=== PATIENT | male | born 1985 | race American Indian/Alaskan Native ===

== ENCOUNTER 2020-07-27 17:33 | Inpatient (IN) | payer OTHER ==
--- NOTE | 2020-07-27 17:59 | Cat Scan Report ---
CT head/brain wo con INDICATION / CLINICAL INFORMATION: 34 years Male; MAIN. TECHNIQUE: Routine CT head without contrast. All CT scans at this location are performed using CT dos e reduction for ALARA by means of automated exposure control. COMPARISON: None. FINDINGS: BRAIN / INTRACRANIAL CONTENTS: No acute hemorrhage, mass effect, midline shift, hydrocephalus, or acu te, large territorial infarct. No signs of significant atrophy or chronic infarct. No significant whi te matter abnormality seen. CRANIOCERVICAL JUNCTION: No significant abnormality. ORBITS: No significant abnormality of visualized orbits. SINUSES / MASTOIDS: There is near complete opacification of the maxillary antrum on the right. Mild t o moderate opacification of the inferior mastoids on the right noted. ADDITIONAL FINDINGS: Prominent soft tissue is seen in the roof the nasopharynx, presumably related to reactive adenoidal tissue. Please clinically correlate. No coalescence of air cells noted. IMPRESSION: 1. No focal mass, hemorrhage, hydrocephalus, or acute, large territorial infarct. 2. Sinus disease, as described above. Signer Name: Leonardo Merlos MD, III Signed: 07/27/2020 5:59 PM Workstation Name: [id number]
--- NOTE | 2020-07-27 18:05 | Consultation ---
History of Present Illness Consult date: 07/27/20 Reason for Consult: encephalopathy, YOUNG History of present illness: [facility] Date of Service: 07/27/2020 17:44:20 Impression: Acute encephalopathy - suspect toxic/metabolic infectious. Rule out encephalitis Rule out sepsis Ischemic stroke less likely, rule out Comments/Sign-Out: 34 yo M with subacute encephalopathy and symptoms concerning for viral meningi tis; focal deficit reported dec sensation to left lower leg does not correlate with ischemic stroke distribution. Exposure includes trip to [facility] and potential COVID. Not alteplase candidate Metrics: Last Known Well: Unknown [employer] Notification Time: 07/27/2020 17:43:56 Arrival Time: 07/27/2020 17:33:00 Stamp Time: 07/27/2020 17:44:20 Time First Login Attempt: 07/27/2020 17:47:43 Video Start Time: 07/27/2020 17:49:38 Symptoms: acute encephalopathy, headache, slurred speech, neck stiffness x 2 days NIHSS Start Assessment Time: 07/27/2020 17:51:57 Patient is not a candidate for Alteplase/Activase. Patient was not deemed candidate for Alteplase/Activase thrombolytics because of Last Well Known Above 4.5 Hours. Video End Time: 07/27/2020 18:04:07 CT head showed no acute hemorrhage or acute core infarct. Clinical Presentation is not Suggestive of Large Vessel Occlusive Disease ED Physician notified of diagnostic impression and management plan on 07/27/2020 18:13:25 Our recommendations are outlined below. Recommendations: Activate Stroke Protocol Admission/Order Set Stroke/Telemetry Floor Neuro Checks Bedside Swallow Eval DVT Prophylaxis IV Fluids, Normal Saline Head of Bed 30 Degrees Euglycemia and Avoid Hyperthermia (PRN Acetaminophen) Recommend empiric antibacterial and antiviral coverage for encepha litis/meningitis; testing to rule out COVID, malaria, and other endemic disease Lumbar puncture to rule out [facility] infection/inflammation MRI brain with and without contrast (if renal function allows) on admission. Medical workup for SIRS/Sepsis Routine Consultation with Inhouse Neurology for Follow up Care Sign Out: Discussed with Emergency Department Provider History of Present Illness: Patient is a 34 year old Male. Patient was brought by private transportation with symptoms of acute encephalopathy, headache, slurred speech, neck stiffness x 2 days 34 yo M who just got back from [place] 2 weeks ago, and friend is concerned about malaria due to confusion, slurred speech headaches and neck stiffness. Patient went for personal visit x 1 month. He took antimalarials but stopped due to side effects. He said he did not get bit by any mosquitoes or have any infection while there but he is not very clear. He had no exposure to COVID and quarantined when he got home. CT head negative. Exam nonfocal, appears drowsy, speech slow but no significant dysarthria. Says left lower leg (sparing thigh) feels less than right. No history of stroke. Currently no neck stiffness, no vision change, but has a headache. Last seen normal was beyond 4.5 hours of presentation. Antiplatelet use: No Examination: BP(105/68), Pulse(134), Blood Glucose(119) 1A: Level of Consciousness - Alert; keenly responsive + 0 1B: Ask Month and Age - Both Questions Right + 0 1C: Blink Eyes & Squeeze Hands - Performs Both Tasks + 0 2: Test Horizontal Extraocular Movements - Normal + 0 3: Test Visual Jaramillo - No Visual Loss + 0 4: Test Facial Palsy (Use Grimace if Obtunded) - Normal symmetry + 0 5A: Test Left Arm Motor Drift - No Drift for 10 Seconds + 0 5B: Test Right Arm Motor Drift - No Drift for 10 Seconds + 0 6A: Test Left Leg Motor Drift - No Drift for 5 Seconds + 0 6B: Test Right Leg Motor Drift - No Drift for 5 Seconds + 0 7: Test Limb Ataxia (FNF/Heel-Mccauley) - No Ataxia + 0 8: Test Sensation - Mild-Moderate Loss: Less Sharp/More Dull + 1 9: Test Language/Aphasia - Normal; No aphasia + 0 10: Test Dysarthria - Mild-Moderate Dysarthria: Slurring but can be understood + 1 11: Test Extinction/Inattention - No abnormality + 0 NIHSS Score: 2 Pre-Morbid Modified Ranking Scale: 0 Points = No symptoms at all Patient/Family was informed the Neurology Consult would happen via TeleHealth consult by way of interactive audio and video telecommunications and consented to receiving care in this manner. Due to the immediate potential for life-threatening deterioration due to underlying acute neurologic illness, I spent 35 minutes providing critical care. This time includes time for face to face visit via telemedicine, review of medical records, imaging studies and discussion of findings with providers, the patient and/or family. Dr Javy Bolaños [facility] Case [id number] Medications and Allergies Allergies Allergy/AdvReac Type Severity Reaction Status Date / Time Unable to Assess Allergy Unverified 07/27/20 17:38 Physical Examination - Vital Signs Vital Signs: Vital Signs Temp Pulse Resp BP Pulse Ox 98.6 F 138 H 18 97/56 99 07/27/20 17:43 07/27/20 17:43 07/27/20 17:43 07/27/20 17:43 07/27/20 17:43 Results - Laboratory Findings Abnormal Lab Findings: Abnormal Labs 07/27/20 18:00 POC Glucose 119 H
[2020-07-27 18:15] LABS: Basophils % (Auto) 0.5 % (0.0-1.8); Hematocrit 45.2 % (35.5-45.6); Hemoglobin 15.7 gm/dl (11.8-15.2); Lymphocytes # (Auto) 0.9 K/mm3 (1.2-5.4); Lymphocytes % (Auto) 9.6 % (13.4-35.0); Mean Corpuscular HGB Conc 35 % (32-34); Mean Corpuscular Volume 89 fl (84-94); Monocytes # (Auto) 0.9 K/mm3 (0.0-0.8); Monocytes % (Auto) 10.1 % (0.0-7.3); Red Blood Count 5.09 M/mm3 (3.65-5.03); Red Cell Distribution Width 13.2 % (13.2-15.2)
[2020-07-27 18:33] LABS: Creatine Kinase MB 2.4 ng/mL (0.0-4.0)
[2020-07-27 18:34] LABS: Albumin 3.3 g/dL (3.9-5); INR 1.15 (0.87-1.13)
[2020-07-27 18:35] LABS: Partial Thromboplastin Time 32.1 Sec. (24.2-36.6); Thrombin Time 16.8 Sec. (15.1-19.6)
[2020-07-27] MEDS ORDERED: SODIUM CHLORIDE 0.9% 1000 ML 1,000 ML IV ONE (18:38)
[2020-07-27] MEDS ORDERED: cefTRIAXone/NS 2 GM/100 ML 2 GM/100 ML BAG IV ONE (18:39)
--- NOTE | 2020-07-27 18:47 | Emergency Department Report ---
HPI - General Chief Complaint: Neuro Symptoms/Deficit Time Seen by Provider: 07/27/20 17:41 - HPI HPI: Room 19 The patient is a 34-year-old male present with a chief complaint of altered mental status. Patient was brought in for altered mental status. Patient states his friend told him he was not acting like his normal self since yesterday. Patient complains of pain to the back of his head and neck since yesterday. Patient states he had episode of vomiting yesterday as well. Patient currently denies headache or fever. Of note within the past 2 weeks the patient travel to [facility]. Patient states he was taking malaria prophylaxis but did not like the side effect so he stopped taking the medication. Patient was asked repeatedly how long he took a prophylaxis for local he never gives an answer. Patient was asked to see has had a cough patient replies "not really until today when drinking water." ED Past Medical Hx - Past Medical History Previous Medical History?: No - Surgical History Past Surgical History?: No - Family History Family history: no significant - Social History Smoking Status: Never Smoker Substance Use Type: None (Denies illicit drug use), Alcohol (Occasional) - Medications Home Medications: Home Medications Medication Instructions Recorded Confirmed Last Taken Type No Known Home Medications [No 07/27/20 07/27/20 Unknown History Reported Home Medications] ED Review of Systems ROS: Stated complaint: NOT RESPONDING Other details as noted in HPI Constitutional: denies: fever Eyes: denies: eye pain ENT: denies: throat pain Respiratory: cough Cardiovascular: denies: chest pain Endocrine: no symptoms reported Gastrointestinal: nausea, vomiting Musculoskeletal: back pain Neurological: confusion Physical Exam - Physical Exam Vital Signs: Vital Signs 07/27/20 07/27/20 17:43 18:06 Temperature 98.6 F Pulse Rate 138 H Respiratory 18 30 H Rate Blood Pressure 97/56 O2 Sat by Pulse 99 97 Oximetry Physical Exam: GENERAL: The patient is well-developed well-nourished male lying on stretcher not appearing to be in acute distress. [] HEENT: Normocephalic. Atraumatic. Extraocular motions are intact. Patient has moist mucous membranes. NECK: Trachea midline. Patient lies on stretcher in a manner in which the back of the stretcher causes him to flex his neck CHEST/LUNGS: Clear to auscultation. There is no respiratory distress noted. HEART/CARDIOVASCULAR: Regular. There is no tachycardia. There is no gallop rub or murmur. ABDOMEN: Abdomen is soft, nontender. Patient has normal bowel sounds. There is no abdominal distention. SKIN: There is no rash. There is no edema. There is no diaphoresis. NEURO: The patient is awake and alert. The patient is cooperative. The patient has no focal neurologic deficits. The patient has normal speech MUSCULOSKELETAL: There is no evidence of acute injury. ED Course Vital Signs 07/27/20 07/27/20 17:43 18:06 Temperature 98.6 F Pulse Rate 138 H Respiratory 18 30 H Rate Blood Pressure 97/56 O2 Sat by Pulse 99 97 Oximetry - Lumbar Puncture Consent Obtained: verbal consent Time Out Performed: Yes Indication for Procedure: change in mental status Patient Position: left lateral decubitus Skin Prep: Povidone-Iodine 1% Local Anesthetic Used: Lidocaine 1% Amount of anesthesia used (mls): 5 Spinal Needle Gauge: 20G Spinal Needle Length: 3.5in Interspace Used: L4-L5 Fluid Initially Obtained: clear Complications: none Patient Tolerated Procedure: well, no complications ED Medical Decision Making - Lab Data Result diagrams: 07/27/20 18:04 07/27/20 18:04 Laboratory Tests 07/27/20 07/27/20 07/27/20 18:00 18:04 18:04 WBC 9.3 RBC 5.09 H Hgb 15.7 H Hct 45.2 MCV 89 MCH 31 MCHC 35 H RDW 13.2 Plt Count 30 L Lymph % (Auto) 9.6 L Carroll % (Auto) 10.1 H Eos % (Auto) 0.0 Baso % (Auto) 0.5 Lymph # (Auto) 0.9 L Carroll # (Auto) 0.9 H Eos # (Auto) 0.0 Baso # (Auto) 0.0 Seg Neutrophils % 79.8 H Seg Neutrophils # 7.4 PT 14.8 INR 1.15 H APTT 32.1 Thrombin Time 16.8 Sodium Potassium Chloride Carbon Dioxide Anion Gap BUN Creatinine Estimated GFR BUN/Creatinine Ratio Glucose POC Glucose 119 H Lactic Acid Calcium Total Bilirubin AST ALT Alkaline Phosphatase Ammonia Total Creatine Kinase CK-MB (CK-2) CK-MB (CK-2) Rel Index Troponin T Total Protein Albumin Albumin/Globulin Ratio CSF Appearance CSF Color CSF WBC CSF RBC CSF Glucose CSF Total Protein 07/27/20 07/27/20 07/27/20 18:04 18:04 18:04 WBC RBC Hgb Hct MCV MCH MCHC RDW Plt Count Lymph % (Auto) Carroll % (Auto) Eos % (Auto) Baso % (Auto) Lymph # (Auto) Carroll # (Auto) Eos # (Auto) Baso # (Auto) Seg Neutrophils % Seg Neutrophils # PT INR APTT Thrombin Time Sodium 126 L Potassium 3.2 L Chloride 91.7 L Carbon Dioxide 21 L Anion Gap 17 BUN 29 H Creatinine 2.0 H Estimated GFR 39 BUN/Creatinine Ratio 15 Glucose 132 H POC Glucose Lactic Acid Calcium 8.0 L Total Bilirubin 5.40 H AST 105 H ALT 85 H Alkaline Phosphatase 57 Ammonia 41.0 Total Creatine Kinase 884 H CK-MB (CK-2) 2.4 CK-MB (CK-2) Rel Index 0.2 Troponin T < 0.010 Total Protein 7.1 Albumin 3.3 L Albumin/Globulin Ratio 0.9 CSF Appearance CSF Color CSF WBC CSF RBC CSF Glucose CSF Total Protein 07/27/20 07/27/20 07/27/20 18:54 20:00 20:00 WBC RBC Hgb Hct MCV MCH MCHC RDW Plt Count Lymph % (Auto) Carroll % (Auto) Eos % (Auto) Baso % (Auto) Lymph # (Auto) Carroll # (Auto) Eos # (Auto) Baso # (Auto) Seg Neutrophils % Seg Neutrophils # PT INR APTT Thrombin Time Sodium Potassium Chloride Carbon Dioxide Anion Gap BUN Creatinine Estimated GFR BUN/Creatinine Ratio Glucose POC Glucose Lactic Acid 1.90 Calcium Total Bilirubin AST ALT Alkaline Phosphatase Ammonia Total Creatine Kinase CK-MB (CK-2) CK-MB (CK-2) Rel Index Troponin T Total Protein Albumin Albumin/Globulin Ratio CSF Appearance Clear Clear CSF Color Colorless Colorless CSF WBC 12 4 CSF RBC 2 0 CSF Glucose 78 CSF Total Protein 42 - EKG Data -: EKG Interpreted by Me EKG shows normal: sinus rhythm Rate: tachycardia (134 bpm) - EKG Data When compared to previous EKG there are: previous EKG unavailable Interpretation: other (No ischemic changes seen) - Radiology Data Radiology results: report reviewed (CT head, chest x-ray), image reviewed (CT head, chest x-ray) interpreted by me: Chest x-ray-no focal infiltrates, no pneumothorax, no foreign body seen [address] [address] Cat Scan Report Signed Patient: CURT TURCIOS MR#: [id number] : 1985 Acct:[id number] Age/Sex: 34 / M ADM Date: 07/27/20 Loc: ED Attending Dr: Ordering Physician: EDGAR RODRIGUEZ Date of Service: 07/27/20 Procedure(s): CT head/brain wo con Accession Number(s): [id number] cc: EDGAR RODRIGUEZ CT head/brain wo con INDICATION / CLINICAL INFORMATION: 34 years Male; MAIN. TECHNIQUE: Routine CT head without contrast. All CT scans at this location are performed using CT dose reduction for ALARA by means of automated exposure control. COMPARISON: None. FINDINGS: BRAIN / INTRACRANIAL CONTENTS: No acute hemorrhage, mass effect, midline shift, hydrocephalus, or acute, large territorial infarct. No signs of significant atrophy or chronic infarct. No significant white matter abnormality seen. CRANIOCERVICAL JUNCTION: No significant abnormality. ORBITS: No significant abnormality of visualized orbits. SINUSES / MASTOIDS: There is near complete opacification of the maxillary antrum on the right. Mild to moderate opacification of the inferior mastoids on the right noted. ADDITIONAL FINDINGS: Prominent soft tissue is seen in the roof the nasopharynx, presumably related to reactive adenoidal tissue. Please clinically correlate. No coalescence of air cells noted. IMPRESSION: 1. No focal mass, hemorrhage, hydrocephalus, or acute, large territorial infarct. 2. Sinus disease, as described above. Signer Name: Leonardo Merlos MD, III Signed: 07/27/2020 5:59 PM Workstation Name: [id number] Transcribed By: HR Dictated By: Leonardo Merlos MD Electronically Authenticated By: Leonardo Merlos MD Signed Date/Time: 07/27/201758 DD/ 55 TD/TT: [address] [address] XRay Report Signed Patient: CURT TURCIOS MR#: [id number] : 1985 Acct:[id number] Age/Sex: 34 / M ADM Date: 07/27/20 Loc: ED Attending Dr: Ordering Physician: EMMA NEVAREZ MD Date of Service: 07/27/20 Procedure(s): XR chest 1V ap Accession Number(s): [id number] cc: EMMA NEVAREZ MD Fluoro Time In Minutes: CHEST 1 VIEW 07/27/2020 7:00 PM INDICATION / CLINICAL INFORMATION: Cough, tachycardia. COMPARISON: None available. FINDINGS: SUPPORT DEVICES: None. HEART / MEDIASTINUM: No significant abnormality. LUNGS / PLEURA: No significant pulmonary or pleural abnormality. No pneumothorax. ADDITIONAL FINDINGS: No significant additional findings. IMPRESSION: No acute abnormality. Signer Name: Prabhjot Reich MD Signed: 07/27/2020 7:27 PM Workstation Name: [id number] Transcribed By: ES Dictated By: Prabhjot Reich MD Electronically Authent icated By: Prabhjot Reich MD Signed Date/Time: 07/27/201926 DD/ 26 TD/TT: - Differential Diagnosis Altered mental status, meningitis, encephalitis, Critical care attestation.: If time is entered above; I have spent that time in minutes in the direct care of this critically ill patient, excluding procedure time. ED Disposition Clinical Impression: Altered mental status Disposition: DC-09 OP ADMIT IP TO THIS HOSP Is pt being admited?: Yes Does the pt Need Aspirin: Yes Condition: Fair Referrals: PRIMARY CARE, [Primary Care Provider] - 3-5 Days Time of Disposition: 21:41 (Hospitalist notified (Dr Dove))
[2020-07-27] MEDS: SODIUM CHLORIDE 0.9% 1000 ML 1,000 ML IV ONE ×2 (18:51→19:10)
[2020-07-27 19:04] LABS: Platelet Count 30 K/mm3 (140-440)
--- NOTE | 2020-07-27 19:28 | XRay Report ---
CHEST 1 VIEW 07/27/2020 7:00 PM INDICATION / CLINICAL INFORMATION: Cough, tachycardia. COMPARISON: None available. FINDINGS: SUPPORT DEVICES: None. HEART / MEDIASTINUM: No significant abnormality. LUNGS / PLEURA: No significant pulmonary or pleural abnormality. No pneumothorax. ADDITIONAL FINDINGS: No significant additional findings. IMPRESSION: No acute abnormality. Signer Name: Prabhjot Reich MD Signed: 07/27/2020 7:27 PM Workstation Name: [id number]
[2020-07-27 20:23] LABS: Glucose,CSF 78 mg/dL
[2020-07-27 21:30] LABS: Appearance,CSF Clear
[2020-07-27 21:31] LABS: Red Blood Cell,CSF 0 /mm3 (0-0); White Blood Cell,CSF 4 /mm3 (1-10)
[2020-07-27 21:32] LABS: Appearance,CSF Clear; Red Blood Cell,CSF 2 /mm3 (0-0); White Blood Cell,CSF 12 /mm3 (1-10)
[2020-07-27 21:43] LABS: Basophils CSF 0 %; Total Cells Counted 47 /mm3
[2020-07-27 22:05] LABS: Basophils CSF 0 %; Total Cells Counted 12 /mm3
--- NOTE | 2020-07-27 23:02 | Cat Scan Report ---
CT ABDOMEN AND PELVIS WITHOUT CONTRAST HISTORY: Right-sided abdominal pain. COMPARISON: None TECHNIQUE: Routine abdominal and pelvic CT exam performed without contrast. Lack of intravenous cont rast limits evaluation of the vascular and solid organs.. All CT scans at this location are performed using CT dose reduction for ALARA by means of automated exposure control. FINDINGS: CT ABDOMEN: Lung Bases: No significant abnormality. Liver: No significant abnormality. Biliary: No significant abnormality. Spleen: No significant abnormality. Unenlarged. Pancreas: No significant abnormality. Adrenals: No significant abnormality. Kidneys: No stones, pelvocaliectasis, ureterectasis. No perinephric or periureteral stranding. Lymphatics: No lymphadenopathy. Vasculature: No significant abnormality. Bowel/Peritoneum: No significant abnormality. No free air. No free fluid. Normal appendix. CT PELVIC: : No significant abnormality. Lymphatics: No lymphadenopathy. Osseous Structures: No aggressive appearing osseous lesions. Additional Findings: None IMPRESSION: 1. No acute findings. No findings to explain right-sided abdominal pain. Signer Name: Julito Camp MD Signed: 07/27/2020 11:02 PM Workstation Name: [id number]
--- NOTE | 2020-07-27 23:13 | History and Physical Report ---
History of Present Illness Date of examination: 07/27/20 Date of admission: 07/27/20 21:40 Chief complaint: Altered mental status History of present illness: 34-year-old male brought into the emergency room with complaints of altered mental status today. Most of the history was gotten from the ER staff as patient appears confused and unable to provide any history. He was said to have complained of headache and some neck pain since yesterday and also that his roommate had told him that he was behaving abnormally. He has had an episode of nausea and vomiting but no headache, fever or chills. He has also had a recent travel to [facility] and was said to have commenced on some malaria prophylaxis but did not complete the dose because of the side effects. Upon arrival in the emergency room today he was found to be tachycardic. He was evaluated by the teleneurologist and was deemed to be probably having metabolic encephalopathy. CT scan of the head has been negative. A lumbar puncture was also performed in the ER and patient commenced empirically on antibiotics for possible meningitis. Peripheral smear for parasites on the blood has also been done and results currently pending. He was found to have elevated BUN and creatinine, elevated creatinine kinase. Patient is being admitted with rhabdo, KHOA and encephalopathy with unclear etiology. Past History Past Medical History: No medical history Past Surgical History: No surgical history Social history: no significant social history Family history: no significant family history Medications and Allergies Allergies Allergy/AdvReac Type Severity Reaction Status Date / Time No Known Allergies Allergy Verified 07/27/20 19:13 Home Medications Medication Instructions Recorded Confirmed Last Taken Type No Known Home Medications [No 07/27/20 07/27/20 Unknown History Reported Home Medications] Active Meds: Active Medications Acetaminophen (Tylenol) 650 mg PO Q4H PRN PRN Reason: Pain MILD(1-3)/Fever >100.5/YOUNG Sodium Chloride (Nacl 0.9% 1000 Ml) 1,000 mls @ 125 mls/hr IV DIRECT RENE Morphine Sulfate (Morphine) 2 mg IV Q4H PRN PRN Reason: Pain, Moderate (4-6) Ondansetron HCl (Zofran) 4 mg IV Q8H PRN PRN Reason: Nausea And Vomiting Sodium Chloride (Sodium Chloride Flush Syringe 10 Ml) 10 ml IV BID RENE Sodium Chloride (Sodium Chloride Flush Syringe 10 Ml) 10 ml IV PRN PRN PRN Reason: LINE FLUSH Sodium Chloride (Sodium Chloride Flush Syringe 10 Ml) 10 ml IV BID RENE Sodium Chloride (Sodium Chloride Flush Syringe 10 Ml) 10 ml IV PRN PRN PRN Reason: LINE FLUSH Review of Systems ROS unobtainable: due to mental status Exam - Constitutional Vitals: Temp Pulse Resp BP Pulse Ox 98.3 F 109 H 16 106/68 95 07/27/20 23:00 07/27/20 23:00 07/27/20 23:00 07/27/20 23:00 07/27/20 23:00 General appearance: Present: no acute distress, well-nourished - EENT Eyes: Present: PERRL, EOM intact. Absent: scleral icterus ENT: hearing intact, clear oral mucosa, dentition normal - Neck Neck: Present: supple, normal ROM - Respiratory Respiratory effort: normal Respiratory: bilateral: CTA - Cardiovascular Rhythm: regular Heart Sounds: Present: S1 & S2. Absent: gallop, systolic murmur, diastolic murmur, rub - Extremities Extremities: no ischemia, pulses intact, pulses symmetrical, No edema, normal temperature, normal color, Full ROM Peripheral Pulses: within normal limits - Abdominal General gastrointestinal: Present: soft, non-tender, non-distended, normal bowel sounds. Absent: mass - Integumentary Integumentary: Present: clear, warm, dry. Absent: rash - Musculoskeletal Musculoskeletal: strength equal bilaterally - Psychiatric Psychiatric: cooperative - Neurologic Neurologic: CNII-XII intact, no focal deficits, moves all extremities, other (Confused.) HEART Score - HEART Score Troponin: Troponin T < 0.010 ng/mL (0.00-0.029) 07/27/20 18:04 Results - Labs CBC & Chem 7: 07/27/20 18:04 07/27/20 18:04 Labs: Abnormal lab results 07/27/20 07/27/20 07/27/20 Range/Units 18:00 18:04 18:04 RBC 5.09 H (3.65-5.03) M/mm3 Hgb 15.7 H (11.8-15.2) gm/dl MCHC 35 H (32-34) % Plt Count 30 L (140-440) K/mm3 Lymph % (Auto) 9.6 L (13.4-35.0) % [place] % (Auto) 10.1 H (0.0-7.3) % Lymph # (Auto) 0.9 L (1.2-5.4) K/mm3 [place] # (Auto) 0.9 H (0.0-0.8) K/mm3 Seg Neutrophils % 79.8 H (40.0-70.0) % INR 1.15 H (0.87-1.13) Sodium (137-145) mmol/L Potassium (3.6-5.0) mmol/L Chloride (98-107) mmol/L Carbon Dioxide (22-30) mmol/L BUN (9-20) mg/dL Creatinine (0.8-1.3) mg/dL Glucose (75-100) mg/dL POC Glucose 119 H (70-105) mg/dL Calcium (8.4-10.2) mg/dL Total Bilirubin (0.1-1.2) mg/dL AST (5-40) units/L ALT (7-56) units/L Total Creatine Kinase (55-170) units/L Albumin (3.9-5) g/dL 07/27/20 07/27/20 Range/Units 18:04 18:04 RBC (3.65-5.03) M/mm3 Hgb (11.8-15.2) gm/dl MCHC (32-34) % Plt Count (140-440) K/mm3 Lymph % (Auto) (13.4-35.0) % [place] % (Auto) (0.0-7.3) % Lymph # (Auto) (1.2-5.4) K/mm3 [place] # (Auto) (0.0-0.8) K/mm3 Seg Neutrophils % (40.0-70.0) % INR (0.87-1.13) Sodium 126 L (137-145) mmol/L Potassium 3.2 L (3.6-5.0) mmol/L Chloride 91.7 L (98-107) mmol/L Carbon Dioxide 21 L (22-30) mmol/L BUN 29 H (9-20) mg/dL Creatinine 2.0 H (0.8-1.3) mg/dL Glucose 132 H (75-100) mg/dL POC Glucose (70-105) mg/dL Calcium 8.0 L (8.4-10.2) mg/dL Total Bilirubin 5.40 H (0.1-1.2) mg/dL AST 105 H (5-40) units/L ALT 85 H (7-56) units/L Total Creatine Kinase 884 H (55-170) units/L Albumin 3.3 L (3.9-5) g/dL Assessment and Plan - Patient Problems (1) Altered mental status Current Visit: Yes Status: Acute Plan to address problem: Etiology is unclear. Patient has had a recent international travel. Peripheral blood smear for parasites has been done. Patient is also being ruled out for possible meningitis. He has been placed on empiric IV antibiotics. We will continue to monitor mental status. We will place a consult to infectious disease for evaluation and recommendation. (2) DVT prophylaxis Current Visit: Yes Status: Acute Plan to address problem: Patient placed on subcutaneous heparin. (3) Elevated creatine kinase Current Visit: Yes Status: Acute Plan to address problem: We will continue to monitor creatinine kinase level and continue generous IV fluid hydration. (4) Acute kidney injury Current Visit: Yes Status: Acute Plan to address problem: We will monitor BUN and creatinine.will continue IV fluid normal saline. (5) Full code status Current Visit: Yes Status: Acute
[2020-07-27 23:21] LABS: Amphetamine Screen,Urine PRESUMPTIVE NEGATIVE; Benzodiazepines Screen,Urine PRESUMPTIVE NEGATIVE; Cannabinoid Screen,Urine PRESUMPTIVE NEGATIVE; Cocaine Screen,Urine PRESUMPTIVE NEGATIVE; Methadone Screen,Urine PRESUMPTIVE NEGATIVE; Opiate Screen,Urine PRESUMPTIVE NEGATIVE
[2020-07-27 23:33] LABS: Bacteria,Urine 1+ /HPF (Negative); Bilirubin,Urine NEG (Negative); Blood,Urine LG (Negative); Color,Urine Amber (Yellow)
[2020-07-27] MEDS ORDERED: VANCOMYCIN PHARMACY TO DOSE IV SCH (23:45)
[2020-07-28] MEDS ORDERED: VANCOMYCIN 2,000 MG in SODIUM CHLORIDE 0.9% 500 ML 500 ML IV ONE (01:00)
[2020-07-28] MEDS: SODIUM CHLORIDE 0.9% 1000 ML 1,000 ML IV SCH ×3 (05:42→20:22)
[2020-07-28] MEDS: HEPARIN 5,000 UNIT/1 ML VIAL SUB-Q SCH ×2 (05:44→14:37)
[2020-07-28 06:28] LABS: Hematocrit 43.9 % (35.5-45.6); Mean Corpuscular HGB Conc 34 % (32-34); Mean Corpuscular Volume 91 fl (84-94); Red Blood Count 4.83 M/mm3 (3.65-5.03)
[2020-07-28 06:32] LABS: Basophils % (Auto) 0.5 % (0.0-1.8); Eosinophils % (Auto) 0.1 % (0.0-4.3); Lymphocytes % (Auto) 12.5 % (13.4-35.0); Monocytes # (Auto) 1.1 K/mm3 (0.0-0.8); Monocytes % (Auto) 13.8 % (0.0-7.3); Platelet Count 29 K/mm3 (140-440)
[2020-07-28 06:33] LABS: INR 1.06 (0.87-1.13)
[2020-07-28 06:42] LABS: Calcium 7.5 mg/dL (8.4-10.2)
--- NOTE | 2020-07-28 08:42 | Consultation ---
History of Present Illness - Reason for Consult Consult date: 07/28/20 acute renal failure - History of Present Illness The patient is a 34 YO male without any medical history who was brought into [facility] ED 07/27 with complaints of altered mental status. Patient reports having occipital headache for the past 3-4 days, which is constant, sharp, not radiating and 8/10. He also reports having decreased appetite and poor PO intake for about 4 days. His roommate found him behaving abnormally. He had an episode of nausea and vomiting. He deneis fever, chills, rash, abd pain, diarrhea, cp, sob, dysuria, hematuria, dizziness or syncope. He has recently traveled to [facility] and was said to have commenced on some malaria prophylaxis but did not complete the dose because of the side effects. Upon arrival in the ED he was found to be tachycardic and hypotensive. He was evaluated by the tel eneurologist and was deemed to be probably having metabolic encephalopathy. CT scan of the head was negative. A lumbar puncture was also performed in the ER and patient commenced empirically on antibiotics for possible meningitis. Labs signficant for elevated BUN and creatinine, hyponatremia and elevated creatinine kinase. Nephrology was consulted for further evaluation. Past History Past Medical History: No medical history Past Surgical History: No surgical history Social history: no significant social history Family history: no significant family history Medications and Allergies Allergies Allergy/AdvReac Type Severity Reaction Status Date / Time No Known Allergies Allergy Verified 07/27/20 19:13 Home Medications Medication Instructions Recorded Confirmed Last Taken Type No Known Home Medications [No 07/27/20 07/27/20 Unknown History Reported Home Medications] Active Meds: Active Medications Acetaminophen (Tylenol) 650 mg PO Q4H PRN PRN Reason: Pain MILD(1-3)/Fever >100.5/YOUNG Heparin Sodium (Porcine) (Heparin) 5,000 unit SUB-Q Q8HR RENE Last Admin: 07/28/20 05:44 Dose: 5,000 unit Documented by: Sodium Chloride (Nacl 0.9% 1000 Ml) 1,000 mls @ 150 mls/hr IV DIRECT RENE Last Admin: 07/28/20 05:42 Dose: 150 mls/hr Documented by: Ceftriaxone Sodium (Rocephin/Ns 2 Gm/100 Ml) 2 gm in 100 mls @ 200 mls/hr IV Q12HR RENE; Protocol Morphine Sulfate (Morphine) 2 mg IV Q4H PRN PRN Reason: Pain, Moderate (4-6) Ondansetron HCl (Zofran) 4 mg IV Q8H PRN PRN Reason: Nausea And Vomiting Sodium Chloride (Sodium Chloride Flush Syringe 10 Ml) 10 ml IV BID RENE Sodium Chloride (Sodium Chloride Flush Syringe 10 Ml) 10 ml IV PRN PRN PRN Reason: LINE FLUSH Last Admin: 07/28/20 05:41 Dose: 10 ml Documented by: Review of Systems Constitutional: anorexia, poor appetite, no weight loss, no weight gain, no fever, no chills, no fatigue Cardiovascular: no chest pain, no orthopnea, no edema, no syncope, no lightheadedness, no shortness of breath, no leg edema Respiratory: no cough, no shortness of breath Gastrointestinal: nausea, vomiting, no abdominal pain, no diarrhea, no melena Genitourinary Male: no dysuria, no hematuria Rectal: no bleeding Musculoskeletal: neck stiffness, neck pain Integumentary: no rash, no redness, no wounds, no jaundice Neurological: change in mentation, no paralysis, no seizures, no syncope, no aphasia Exam - Vital Signs Vital signs: Vital Signs Temp Pulse Resp BP Pulse Ox 98.6 F 138 H 18 97/56 99 07/27/20 17:43 07/27/20 17:43 07/27/20 17:43 07/27/20 17:43 07/27/20 17:43 Results - Lab Results 07/28/20 05:56 07/28/20 05:56 Most recent lab results Calcium 7.5 mg/dL (8.4-10.2) L 07/28/20 05:56 Assessment and Plan 1. Acute kidney injury: Likely vasomotor KHOA in the setting of volume depletion. CT abdomen was negative for hydro. Urine studies ordered. Continue IV fluids. Monitor renal function. Creatinine level is improving Avoid nephrotoxic agents. Meds dosage based on GFR. 2. FEN: Hyponatremia, 2/2 volume depletion, improving, monitor. Hypokalemia, improving, monitor. Monitor lytes and volume status. 3. Acute encephalopathy, POA: Suspected meningitis. Follow CSF cultures. Continue Abx. Followed by ID. 4. Febrile illness: Secondary to malaria, likely falciparum. Followed by ID. 5. Elevated Transaminases and T.bili. 6. Thrombocytopenia. Subjective: Patient was seen and examined at the bedside. Examination: General appearance: well-developed, appears stated age, well nourished HEENT: ATNC, pupils equal Neck: trachea midline Respiratory: ctab Heart: regular, S1S2, no murmur Gastrointestinal: soft, normoactive bowel sounds, not tender Integumentary: no rash, warm and dry Neurologic: alert, oriented, conversing, non-focal Ext: no edema
[2020-07-28] MEDS ORDERED: cefTRIAXone/NS 2 GM/100 ML 2 GM/100 ML BAG IV SCH (10:00)
--- NOTE | 2020-07-28 10:57 | Progress Note ---
Assessment and Plan Assessment and plan: --Acute metabolic encephalopathy: Patient had recent international travel. Status post lumbar puncture, Follow CSF analysis Follow peripheral smear for parasites Supportive care --Acute kidney injury; Due to vasomotor nephropathy Closely monitor renal function, avoid nephrotoxins Nephrology consult as needed --Hyponatremia; Continue replacement therapy with normal saline Mild improvement, nephrology following --Elevated CK; Gentle hydration closely monitor renal function --DVT prophylaxis; Subcu heparin, SCDs We will closely monitor the patient and adjust management as needed Follow ID evaluation and recommendations We will closely monitor the patient and adjust management as needed Plan of care reviewed with the patient and his nurse History Interval history: I have seen and examined the patient at the bedside today Patient was admitted with altered level of consciousness History of recent travel Patient is more alert and awake Work-up is in progress Complains of generalized weakness Vital signs noted Hospitalist Physical - Constitutional Vitals: Temp Pulse Resp BP Pulse Ox 98.1 F 101 H 16 112/69 97 07/28/20 03:18 07/28/20 03:18 07/28/20 03:18 07/28/20 03:18 07/28/20 03:18 General appearance: Present: no acute distress, well-nourished, other (Alert awake oriented x3) - EENT Eyes: Present: PERRL, EOM intact - Neck Neck: Present: supple, normal ROM - Respiratory Respiratory effort: normal Respiratory: bilateral: diminished, negative: rales, rhonchi, wheezing - Cardiovascular Rhythm: regular Heart Sounds: Present: S1 & S2 - Extremities Extremities: no ischemia, No edema - Abdominal General gastrointestinal: soft, non-tender, non-distended, normal bowel sounds - Integumentary Integumentary: Present: clear, warm - Psychiatric Psychiatric: appropriate mood/affect, cooperative - Neurologic Neurologic: CNII-XII intact, moves all extremities HEART Score - HEART Score Troponin: Troponin T < 0.010 ng/mL (0.00-0.029) 07/27/20 18:04 Results - Labs CBC & Chem 7: 07/28/20 05:56 07/28/20 05:56 Labs: Laboratory Last Values WBC 8.0 K/mm3 (4.5-11.0) 07/28/20 05:56 RBC 4.83 M/mm3 (3.65-5.03) 07/28/20 05:56 Hgb 15.0 gm/dl (11.8-15.2) 07/28/20 05:56 Hct 43.9 % (35.5-45.6) 07/28/20 05:56 MCV 91 fl (84-94) 07/28/20 05:56 MCH 31 pg (28-32) 07/28/20 05:56 MCHC 34 % (32-34) 07/28/20 05:56 RDW 14.0 % (13.2-15.2) 07/28/20 05:56 Plt Count 29 K/mm3 (140-440) L 07/28/20 05:56 Lymph % (Auto) 12.5 % (13.4-35.0) L 07/28/20 05:56 [place] % (Auto) 13.8 % (0.0-7.3) H 07/28/20 05:56 Eos % (Auto) 0.1 % (0.0-4.3) 07/28/20 05:56 Baso % (Auto) 0.5 % (0.0-1.8) 07/28/20 05:56 Lymph # (Auto) 1.0 K/mm3 (1.2-5.4) L 07/28/20 05:56 [place] # (Auto) 1.1 K/mm3 (0.0-0.8) H 07/28/20 05:56 Eos # (Auto) 0.0 K/mm3 (0.0-0.4) 07/28/20 05:56 Baso # (Auto) 0.0 K/mm3 (0.0-0.1) 07/28/20 05:56 Seg Neutrophils % 73.1 % (40.0-70.0) H 07/28/20 05:56 Seg Neutrophils # 5.8 K/mm3 (1.8-7.7) 07/28/20 05:56 PT 13.9 Sec. (12.2-14.9) 07/28/20 05:56 INR 1.06 (0.87-1.13) 07/28/20 05:56 APTT 32.1 Sec. (24.2-36.6) 07/27/20 18:04 Thrombin Time 16.8 Sec. (15.1-19.6) 07/27/20 18:04 Sodium 133 mmol/L (137-145) L D 07/28/20 05:56 Potassium 3.8 mmol/L (3.6-5.0) 07/28/20 05:56 Chloride 97.8 mmol/L (98-107) L 07/28/20 05:56 Carbon Dioxide 22 mmol/L (22-30) 07/28/20 05:56 Anion Gap 17 mmol/L 07/28/20 05:56 BUN 23 mg/dL (9-20) H 07/28/20 05:56 Creatinine 1.6 mg/dL (0.8-1.3) H 07/28/20 05:56 Estimated GFR 50 ml/min 07/28/20 05:56 BUN/Creatinine Ratio 14 % 07/28/20 05:56 Glucose 100 mg/dL (75-100) 07/28/20 05:56 POC Glucose 119 mg/dL (70-105) H 07/27/20 18:00 Lactic Acid 1.90 mmol/L (0.7-2.0) 07/27/20 18:54 Calcium 7.5 mg/dL (8.4-10.2) L 07/28/20 05:56 Total Bilirubin 5.40 mg/dL (0.1-1.2) H 07/27/20 18:04 AST 105 units/L (5-40) H 07/27/20 18:04 ALT 85 units/L (7-56) H 07/27/20 18:04 Alkaline Phosphatase 57 units/L (35-129) 07/27/20 18:04 Ammonia 41.0 umol/L (25-60) 07/27/20 18:04 Total Creatine Kinase 698 units/L (55-170) H 07/28/20 05:56 CK-MB (CK-2) 2.4 ng/mL (0.0-4.0) 07/27/20 18:04 CK-MB (CK-2) Rel Index 0.2 (0-4) 07/27/20 18:04 Troponin T < 0.010 ng/mL (0.00-0.029) 07/27/20 18:04 Total Protein 7.1 g/dL (6.3-8.2) 07/27/20 18:04 Albumin 3.3 g/dL (3.9-5) L 07/27/20 18:04 Albumin/Globulin Ratio 0.9 % 07/27/20 18:04 Urine Color [place]zel (Yellow) 07/27/20 Unknown Urine Turbidity Cloudy (Clear) 07/27/20 Unknown Urine pH 5.0 (5.0-7.0) 07/27/20 Unknown Ur Specific [place] 1.012 (1.003-1.030) 07/27/20 Unknown Urine Protein 100 mg/dl mg/dL (Negative) 07/27/20 Unknown Urine Glucose (UA) Neg mg/dL (Negative) 07/27/20 Unknown Urine Ketones Neg mg/dL (Negative) 07/27/20 Unknown Urine Blood Lg (Negative) 07/27/20 Unknown Urine Nitrite Neg (Negative) 07/27/20 Unknown Urine Bilirubin Neg (Negative) 07/27/20 Unknown Urine Urobilinogen 4.0 mg/dL (<2.0) 07/27/20 Unknown Ur Leukocyte Esterase Neg (Negative) 07/27/20 Unknown Urine WBC (Auto) 4.0 /HPF (0.0-6.0) 07/27/20 Unknown Urine RBC (Auto) 2.0 /HPF (0.0-6.0) 07/27/20 Unknown U Epithel Cells (Auto) < 1.0 /HPF (0-13.0) 07/27/20 Unknown Urine Bacteria (Auto) 1+ /HPF (Negative) 07/27/20 Unknown CSF Appearance Clear 07/27/20 20:00 CSF Appearance Clear 07/27/20 20:00 CSF Color Colorless 07/27/20 20:00 CSF Color Colorless 07/27/20 20:00 CSF WBC 4 /mm3 (1-10) 07/27/20 20:00 CSF WBC 12 /mm3 (1-10) 07/27/20 20:00 CSF RBC 0 /mm3 (0-0) 07/27/20 20:00 CSF RBC 2 /mm3 (0-0) 07/27/20 20:00 CSF Seg Neutrophils 0 % (0-6) 07/27/20 20:00 CSF Seg Neutrophils 0 % (0-6) 07/27/20 20:00 CSF Lymphocytes % 74.5 % (40-80) 07/27/20 20:00 CSF Lymphocytes % 83.3 % (40-80) 07/27/20 20:00 CSF Reactive Lymphs 0 % 07/27/20 20:00 CSF Reactive Lymphs 0 % 07/27/20 20:00 CSF Monocytes % 16.7 % (15-45) 07/27/20 20:00 CSF Monocytes % 25.5 % (15-45) 07/27/20 20:00 CSF Eosinophils % 0 % 07/27/20 20:00 CSF Eosinophils % 0 % 07/27/20 20:00 CSF Basophils 0 % 07/27/20 20:00 CSF Basophils 0 % 07/27/20 20:00 CSF Pathologist Review C 07/27/20 20:00 CSF Pathologist Review C 07/27/20 20:00 CSF Glucose 78 mg/dL 07/27/20 20:00 CSF Total Protein 42 mg/dL 07/27/20 20:00 Urine Opiates Screen Presumptive negative 07/27/20 Unknown Urine Methadone Screen Presumptive negative 07/27/20 Unknown Ur Barbiturates Screen Presumptive negative 07/27/20 Unknown Ur Phencyclidine Scrn Presumptive negative 07/27/20 Unknown Ur Amphetamines Screen Presumptive negative 07/27/20 Unknown U Benzodiazepines Scrn Presumptive negative 07/27/20 Unknown Urine Cocaine Screen Presumptive negative 07/27/20 Unknown U Marijuana (THC) Screen Presumptive negative 07/27/20 Unknown Drugs of Abuse Note Disclamer 07/27/20 Unknown Microbiology: Microbiology 07/27/20 20:00 Cerebral Spinal Fluid CSF Culture - Preliminary 07/27/20 18:04 Blood - Peripheral/Venous Parasite Direct Smear - Preliminary 07/27/20 18:58 Peripheral/Venous Blood Culture - Preliminary Culture in Progress 07/27/20 18:54 Peripheral/Venous Blood Culture - Preliminary Culture in Progress López/IV: Voiding Method Toilet IV Catheter Type [Left Forearm INT / Saline Lock ] IV Catheter Type [Right INT / Saline Lock Forearm] Active Medications - Current Medications Current Medications: Generic Name Dose Route Start Last Admin Trade Name Freq PRN Reason Stop Dose Admin Acetaminophen 650 mg 07/27/20 22:53 Tylenol PO Q4H PRN Pain MILD(1-3)/Fever >100.5/YOUNG Heparin Sodium (Porcine) 5,000 unit 07/28/20 06:00 07/28/20 05:44 Heparin SUB-Q 5,000 unit Q8HR RENE Administration Sodium Chloride 1,000 mls @ 150 mls/hr 07/27/20 23:00 07/28/20 10:36 Nacl 0.9% 1000 Ml IV 150 mls/hr DIRECT RENE Administration Ceftriaxone Sodium 2 gm in 100 mls @ 200 mls/hr 07/28/20 10:00 07/28/20 10:37 Rocephin/Ns 2 Gm/100 Ml IV 200 mls/hr Q12HR RENE Administration Protocol Morphine Sulfate 2 mg 07/27/20 22:53 Morphine IV Q4H PRN Pain, Moderate (4-6) Ondansetron HCl 4 mg 07/27/20 22:53 Zofran IV Q8H PRN Nausea And Vomiting Sodium Chloride 10 ml 07/28/20 10:00 07/28/20 10:37 Sodium Chloride Flush Syringe 10 Ml IV 10 ml BID RENE Administration Sodium Chloride 10 ml 07/27/20 22:53 07/28/20 05:41 Sodium Chloride Flush Syringe 10 Ml IV 10 ml PRN PRN Administration LINE FLUSH
[2020-07-28] MEDS ORDERED: MALARONE PO SCH (13:30)
[2020-07-28] MEDS ORDERED: ATOVAQUONE PO STA (13:46)
[2020-07-28] MEDS ORDERED: PROGUANIL PO STA (13:46)
--- NOTE | 2020-07-28 14:02 | Consultation ---
History of Present Illness - Reason for Consult Consult date: 07/28/20 Sepsis, international travel Requesting physician: BELLE HASTINGS - History of Present Illness The patient is a 34-year-old male with no significant past medical history was admitted to the hospital yesterday with complaints of altered mental status, fever and headaches. He underwent an LP and that was unremarkable for acute infection. He also mentioned about recent travel to [place], returned to the [place] 2 weeks ago and did not take malaria prophylaxis. Infectious diseases was cons ulted for additional evaluation. Labs revealed hyponatremia on admission along with acute renal failure that seems to be improving. Patient is originally from the , he was born in [facility], this was his first trip to [facility] where he has some family. Review of Systems: General: Fever HEENT: no new visual disturbance Respiratory: No cough, sputum, hemoptysis or shortness of breath Cardiovascular: No chest pain, syncope Gastrointestinal: No nausea, vomiting. Diarrhea present Genitourinary: No dysuria or hematuria Musculoskeletal: No new or worsening neck pain or back pain Neurologic: Headaches Hematologic: No easy bruising or bleeding Endocrine: No night sweats or acute weight loss Skin: negative for rash, jaundice Psychiatric: No suicidal or homicidal ideation Past History Past Medical History: No medical history Past Surgical History: No surgical history Social history: no significant social history Family history: no significant family history Medications and Allergies Allergies Allergy/AdvReac Type Severity Reaction Status Date / Time No Known Allergies Allergy Verified 07/27/20 19:13 Home Medications Medication Instructions Recorded Confirmed Last Taken Type No Known Home Medications [No 07/27/20 07/27/20 Unknown History Reported Home Medications] Active Meds: Active Medications Acetaminophen (Tylenol) 650 mg PO Q4H PRN PRN Reason: Pain MILD(1-3)/Fever >100.5/YOUNG Atovaquone/Proguanil (Malarone 250-100 Mg (Nf)) 4 each PO DAILY RENE Heparin Sodium (Porcine) (Heparin) 5,000 unit SUB-Q Q8HR RENE Last Admin: 07/28/20 05:44 Dose: 5,000 unit Documented by: Sodium Chloride (Nacl 0.9% 1000 Ml) 1,000 mls @ 150 mls/hr IV DIRECT RENE Last Admin: 07/28/20 10:36 Dose: 150 mls/hr Documented by: Ceftriaxone Sodium (Rocephin/Ns 2 Gm/100 Ml) 2 gm in 100 mls @ 200 mls/hr IV Q12HR RENE; Protocol Last Admin: 07/28/20 10:37 Dose: 200 mls/hr Documented by: Morphine Sulfate (Morphine) 2 mg IV Q4H PRN PRN Reason: Pain, Moderate (4-6) Ondansetron HCl (Zofran) 4 mg IV Q8H PRN PRN Reason: Nausea And Vomiting Sodium Chloride (Sodium Chloride Flush Syringe 10 Ml) 10 ml IV BID RENE Last Admin: 07/28/20 10:37 Dose: 10 ml Documented by: Sodium Chloride (Sodium Chloride Flush Syringe 10 Ml) 10 ml IV PRN PRN PRN Reason: LINE FLUSH Last Admin: 07/28/20 05:41 Dose: 10 ml Documented by: Physical Examination - Physical Exam Narrative exam: Physical Exam: Constitutional: Alert, cooperative. No acute distress Head, Ears, Nose: Normocephalic, atraumatic. External ears, nose normal Eyes: Conjunctivae/corneas clear. No icterus. No ptosis. Neck: Supple, no meningeal signs Oral: dentition fair, no thrush Cardiovascular: S1, S2 normal. Respiratory: Good air entry, clear to auscultation bilaterally GI: Soft, non-tender; bowel sounds normal. No peritoneal signs Musculoskeletal: No pedal edema, no cyanosis. Skin: No rash or abscess Hem/Lymphatic: No palpable cervical or supraclavicular nodes. No lymphangitis Psych: Mood ok. Affect normal Neurological: Awake, alert, oriented. No gross abnormality - Constitutional Vitals: Vital Signs Temp Pulse Resp BP Pulse Ox 98.1 F 101 H 16 112/69 97 07/28/20 03:18 07/28/20 03:18 07/28/20 03:18 07/28/20 03:18 07/28/20 03:18 Temperature -Last 24 Hours Temperature 98.1 F Temperature 99.6 F Temperature 98.3 F Temperature 98.6 F Results - Labs CBC & Chem 7: 07/28/20 05:56 07/28/20 05:56 Labs: Abnormal lab results 07/27/20 07/27/20 07/27/20 Range/Units 18:00 18:04 18:04 RBC 5.09 H (3.65-5.03) M/mm3 Hgb 15.7 H (11.8-15.2) gm/dl MCHC 35 H (32-34) % Plt Count 30 L (140-440) K/mm3 Lymph % (Auto) 9.6 L (13.4-35.0) % [place] % (Auto) 10.1 H (0.0-7.3) % Lymph # (Auto) 0.9 L (1.2-5.4) K/mm3 [place] # (Auto) 0.9 H (0.0-0.8) K/mm3 Seg Neutrophils % 79.8 H (40.0-70.0) % INR 1.15 H (0.87-1.13) Sodium (137-145) mmol/L Potassium (3.6-5.0) mmol/L Chloride (98-107) mmol/L Carbon Dioxide (22-30) mmol/L BUN (9-20) mg/dL Creatinine (0.8-1.3) mg/dL Glucose (75-100) mg/dL POC Glucose 119 H (70-105) mg/dL Calcium (8.4-10.2) mg/dL Total Bilirubin (0.1-1.2) mg/dL AST (5-40) units/L ALT (7-56) units/L Total Creatine Kinase (55-170) units/L Albumin (3.9-5) g/dL 07/27/20 07/27/20 07/28/20 Range/Units 18:04 18:04 05:56 RBC (3.65-5.03) M/mm3 Hgb (11.8-15.2) gm/dl MCHC (32-34) % Plt Count 29 L (140-440) K/mm3 Lymph % (Auto) 12.5 L (13.4-35.0) % [place] % (Auto) 13.8 H (0.0-7.3) % Lymph # (Auto) 1.0 L (1.2-5.4) K/mm3 [place] # (Auto) 1.1 H (0.0-0.8) K/mm3 Seg Neutrophils % 73.1 H (40.0-70.0) % INR (0.87-1.13) Sodium 126 L (137-145) mmol/L Potassium 3.2 L (3.6-5.0) mmol/L Chloride 91.7 L (98-107) mmol/L Carbon Dioxide 21 L (22-30) mmol/L BUN 29 H (9-20) mg/dL Creatinine 2.0 H (0.8-1.3) mg/dL Glucose 132 H (75-100) mg/dL POC Glucose (70-105) mg/dL Calcium 8.0 L (8.4-10.2) mg/dL Total Bilirubin 5.40 H (0.1-1.2) mg/dL AST 105 H (5-40) units/L ALT 85 H (7-56) units/L Total Creatine Kinase 884 H (55-170) units/L Albumin 3.3 L (3.9-5) g/dL 07/28/20 07/28/20 Range/Units 05:56 05:56 RBC (3.65-5.03) M/mm3 Hgb (11.8-15.2) gm/dl MCHC (32-34) % Plt Count (140-440) K/mm3 Lymph % (Auto) (13.4-35.0) % [place] % (Auto) (0.0-7.3) % Lymph # (Auto) (1.2-5.4) K/mm3 [place] # (Auto) (0.0-0.8) K/mm3 Seg Neutrophils % (40.0-70.0) % INR (0.87-1.13) Sodium 133 L D (137-145) mmol/L Potassium (3.6-5.0) mmol/L Chloride 97.8 L (98-107) mmol/L Carbon Dioxide (22-30) mmol/L BUN 23 H (9-20) mg/dL Creatinine 1.6 H (0.8-1.3) mg/dL Glucose (75-100) mg/dL POC Glucose (70-105) mg/dL Calcium 7.5 L (8.4-10.2) mg/dL Total Bilirubin (0.1-1.2) mg/dL AST (5-40) units/L ALT (7-56) units/L Total Creatine Kinase 698 H (55-170) units/L Albumin (3.9-5) g/dL - Imaging and Cardiology Chest x-ray: report reviewed, image reviewed (no abnormality) Assessment and Plan Cultures: 07/27/2020 blood culture: In process 07/27/2020 CSF culture: In process A/P: 34/M with: #Febrile illness secondary to malaria: Likely falciparum. I spoke to the micro lab, sample will be sent to [facility] for additional speciation. Also, locally, they are unable to perform a parasitemia index. Patient's mental status seems better at the time of my evaluation. Will initiate Malarone stat. #Acute encephalopathy: Probably from hyponatremia. Initial sodium was 126. Seems to be improving. Could also be related to malaria. #Acute kidney injury: Creatinine improving. #Elevated LFTs including bilirubin: Likely again from malaria, possibly some hemolysis going on. Recs: -PO Malarone ordered STAT: 4 tabs daily x 3 days. Patient should be able to swallow, mental status seems fine at this time. Spoke to pharmacy, it is available in house -I spoke to the micro lab, sample will be sent to [facility] for additional speciation. Also, locally, they are unable to perform a parasitemia index -continue supportive care and clinical monitoring, if any deterioration, may need IV artesunate -meanwhile, will also see if pharmacy can obtain IV artesunate (from [facility] or another source now that it is FDA approved) -G6PD ordered, in case this is vivax and patient may need primaquine later Eli Donaldson MD, FACP [facility] ([facility] O: [phone] F: [phone]
[2020-07-28] MEDS: ATOVAQUONE PO SCH (14:36)
[2020-07-28] MEDS: PROGUANIL PO SCH (14:36)
[2020-07-28] MEDS ORDERED: PROGUANIL PO ONE ×2 (15:25→16:00)
[2020-07-28] MEDS ORDERED: ATOVAQUONE PO ONE ×2 (15:25→16:00)
[2020-07-28] MEDS: ONDANSETRON 4 MG/2 ML INJ IV PRN (16:23)
[2020-07-28] MEDS: ACETAMINOPHEN 325 MG TAB PO PRN (18:55)
[2020-07-28] MEDS: MORPHINE 2 MG/1 ML INJ IV PRN (18:55)
--- NOTE | 2020-07-28 20:25 | Event Note ---
Date: 07/28/20 Lab called and reported that smear positive for malaria parasite ID is already consulted, ID started Malarone, and further testing per protocol Closely monitor the patient and adjust management as needed. Patient had LP, CSF fluid analysis negative for any acute infection Continue supportive care
[2020-07-29] MEDS: SODIUM CHLORIDE 0.9% 1000 ML 1,000 ML IV SCH ×3 (02:03→21:56)
[2020-07-29] MEDS: MORPHINE 2 MG/1 ML INJ IV PRN ×2 (02:03→21:10)
[2020-07-29 06:43] LABS: Alanine Aminotransferase 58 units/L (7-56); Albumin 2.7 g/dL (3.9-5); BUN/Creatinine Ratio 15; Blood Urea Nitrogen 20 mg/dL (9-20); Calcium 6.9 mg/dL (8.4-10.2); Hemolysis Index 18
[2020-07-29] MEDS: ACETAMINOPHEN 325 MG TAB PO PRN ×3 (06:56→20:28)
[2020-07-29] MEDS ORDERED: POTASSIUM PHOSPHATE 40 MMOL in SODIUM CHLORIDE 0.9% 500 ML 500 ML IV ONE (09:30)
[2020-07-29] MEDS: ATOVAQUONE PO SCH (09:47)
[2020-07-29] MEDS: PROGUANIL PO SCH (09:47)
[2020-07-29] MEDS: ONDANSETRON 4 MG/2 ML INJ IV PRN (09:57)
--- NOTE | 2020-07-29 10:32 | Progress Note ---
Assessment and Plan Assessment and plan: --Febrile illness/malaria; Patient is on Malarone Per ID Supportive care Antipyretics, follow cultures --Acute metabolic encephalopathy: Patient had recent international travel. Status post lumbar puncture, Follow CSF analysis, CSF cultures negative Continue Malarone and supportive care --Acute kidney injury; Due to vasomotor nephropathy Closely monitor renal function, avoid nephrotoxins Nephrology following --Hypophosphatemia; Replenish per protocol monitor electrolytes --Acute liver failure/transaminitis/bilirubinemia Probably related to malaria and possible hemolysis Closely monitor --Hypoproteinemia/severe malnutrition Supportive care nutrition supplements, --Hyponatremia; Continue replacement therapy with normal saline Mild improvement, nephrology following --Elevated CK; Gentle hydration closely monitor renal function --DVT prophylaxis; Subcu heparin, SCDs We will closely monitor the patient and adjust management as needed Present recommendations noted and appreciated Plan of care reviewed with the patient and his nurse History Interval history: I have seen and examined the patient at the bedside this morning Patient's chart and medications reviewed Patient had an international travel recently Admitted with altered level of consciousness ,febrile illness with chills and rigors Work-up is consistent with malaria, ID following Today patient is more alert and awake Febrile vital signs noted Hospitalist Physical - Constitutional Vitals: Temp Pulse Resp BP Pulse Ox 102.0 F H 90 18 150/80 98 07/29/20 07:27 07/29/20 09:03 07/29/20 09:03 07/29/20 07:27 07/29/20 07:27 General appearance: Present: no acute distress, well-nourished, other (Alert awake oriented x3) - EENT Eyes: Present: PERRL, EOM intact - Neck Neck: Present: supple, normal ROM - Respiratory Respiratory effort: normal Respiratory: bilateral: diminished, negative: rales, rhonchi, wheezing - Cardiovascular Rhythm: regular Heart Sounds: Present: S1 & S2 - Extremities Extremities: no ischemia, No edema - Abdominal General gastrointestinal: soft, non-tender, non-distended, normal bowel sounds - Integumentary Integumentary: Present: clear, warm - Psychiatric Psychiatric: appropriate mood/affect, cooperative - Neurologic Neurologic: moves all extremities HEART Score - HEART Score Troponin: Troponin T < 0.010 ng/mL (0.00-0.029) 07/27/20 18:04 Results - Labs CBC & Chem 7: 07/28/20 05:56 07/29/20 05:53 Labs: Laboratory Last Values WBC 8.0 K/mm3 (4.5-11.0) 07/28/20 05:56 RBC 4.83 M/mm3 (3.65-5.03) 07/28/20 05:56 Hgb 15.0 gm/dl (11.8-15.2) 07/28/20 05:56 Hct 43.9 % (35.5-45.6) 07/28/20 05:56 MCV 91 fl (84-94) 07/28/20 05:56 MCH 31 pg (28-32) 07/28/20 05:56 MCHC 34 % (32-34) 07/28/20 05:56 RDW 14.0 % (13.2-15.2) 07/28/20 05:56 Plt Count 29 K/mm3 (140-440) L 07/28/20 05:56 Lymph % (Auto) 12.5 % (13.4-35.0) L 07/28/20 05:56 [place] % (Auto) 13.8 % (0.0-7.3) H 07/28/20 05:56 Eos % (Auto) 0.1 % (0.0-4.3) 07/28/20 05:56 Baso % (Auto) 0.5 % (0.0-1.8) 07/28/20 05:56 Lymph # (Auto) 1.0 K/mm3 (1.2-5.4) L 07/28/20 05:56 [place] # (Auto) 1.1 K/mm3 (0.0-0.8) H 07/28/20 05:56 Eos # (Auto) 0.0 K/mm3 (0.0-0.4) 07/28/20 05:56 Baso # (Auto) 0.0 K/mm3 (0.0-0.1) 07/28/20 05:56 Seg Neutrophils % 73.1 % (40.0-70.0) H 07/28/20 05:56 Seg Neutrophils # 5.8 K/mm3 (1.8-7.7) 07/28/20 05:56 PT 13.9 Sec. (12.2-14.9) 07/28/20 05:56 INR 1.06 (0.87-1.13) 07/28/20 05:56 APTT 32.1 Sec. (24.2-36.6) 07/27/20 18:04 Thrombin Time 16.8 Sec. (15.1-19.6) 07/27/20 18:04 Sodium 134 mmol/L (137-145) L 07/29/20 05:53 Potassium 3.8 mmol/L (3.6-5.0) 07/29/20 05:53 Chloride 100.9 mmol/L (98-107) 07/29/20 05:53 Carbon Dioxide 23 mmol/L (22-30) 07/29/20 05:53 Anion Gap 14 mmol/L 07/29/20 05:53 BUN 20 mg/dL (9-20) 07/29/20 05:53 Creatinine 1.3 mg/dL (0.8-1.3) 07/29/20 05:53 Estimated GFR > 60 ml/min 07/29/20 05:53 BUN/Creatinine Ratio 15 % 07/29/20 05:53 Glucose 93 mg/dL (75-100) 07/29/20 05:53 POC Glucose 116 mg/dL (70-105) H 07/28/20 20:28 Lactic Acid 1.90 mmol/L (0.7-2.0) 07/27/20 18:54 Calcium 6.9 mg/dL (8.4-10.2) L 07/29/20 05:53 Phosphorus 1.20 mg/dL (2.5-4.5) L 07/29/20 05:53 Magnesium 2.20 mg/dL (1.7-2.3) 07/29/20 05:53 Total Bilirubin 1.80 mg/dL (0.1-1.2) H 07/29/20 05:53 AST 62 units/L (5-40) H 07/29/20 05:53 ALT 58 units/L (7-56) H 07/29/20 05:53 Alkaline Phosphatase 51 units/L (35-129) 07/29/20 05:53 Ammonia 41.0 umol/L (25-60) 07/27/20 18:04 Total Creatine Kinase 454 units/L (55-170) H 07/29/20 05:53 CK-MB (CK-2) 2.4 ng/mL (0.0-4.0) 07/27/20 18:04 CK-MB (CK-2) Rel Index 0.2 (0-4) 07/27/20 18:04 Troponin T < 0.010 ng/mL (0.00-0.029) 07/27/20 18:04 Total Protein 6.1 g/dL (6.3-8.2) L 07/29/20 05:53 Albumin 2.7 g/dL (3.9-5) L 07/29/20 05:53 Albumin/Globulin Ratio 0.8 % 07/29/20 05:53 Urine Color Itzel (Yellow) 07/27/20 Unknown Urine Turbidity Cloudy (Clear) 07/27/20 Unknown Urine pH 5.0 (5.0-7.0) 07/27/20 Unknown Ur Specific Edson 1.012 (1.003-1.030) 07/27/20 Unknown Urine Protein 100 mg/dl mg/dL (Negative) 07/27/20 Unknown Urine Glucose (UA) Neg mg/dL (Negative) 07/27/20 Unknown Urine Ketones Neg mg/dL (Negative) 07/27/20 Unknown Urine Blood Lg (Negative) 07/27/20 Unknown Urine Nitrite Neg (Negative) 07/27/20 Unknown Urine Bilirubin Neg (Negative) 07/27/20 Unknown Urine Urobilinogen 4.0 mg/dL (<2.0) 07/27/20 Unknown Ur Leukocyte Esterase Neg (Negative) 07/27/20 Unknown Urine WBC (Auto) 4.0 /HPF (0.0-6.0) 07/27/20 Unknown Urine RBC (Auto) 2.0 /HPF (0.0-6.0) 07/27/20 Unknown U Epithel Cells (Auto) < 1.0 /HPF (0-13.0) 07/27/20 Unknown Urine Bacteria (Auto) 1+ /HPF (Negative) 07/27/20 Unknown CSF Appearance Clear 07/27/20 20:00 CSF Appearance Clear 07/27/20 20:00 CSF Color Colorless 07/27/20 20:00 CSF Color Colorless 07/27/20 20:00 CSF WBC 4 /mm3 (1-10) 07/27/20 20:00 CSF WBC 12 /mm3 (1-10) 07/27/20 20:00 CSF RBC 0 /mm3 (0-0) 07/27/20 20:00 CSF RBC 2 /mm3 (0-0) 07/27/20 20:00 CSF Seg Neutrophils 0 % (0-6) 07/27/20 20:00 CSF Seg Neutrophils 0 % (0-6) 07/27/20 20:00 CSF Lymphocytes % 74.5 % (40-80) 07/27/20 20:00 CSF Lymphocytes % 83.3 % (40-80) 07/27/20 20:00 CSF Reactive Lymphs 0 % 07/27/20 20:00 CSF Reactive Lymphs 0 % 07/27/20 20:00 CSF Monocytes % 16.7 % (15-45) 07/27/20 20:00 CSF Monocytes % 25.5 % (15-45) 07/27/20 20:00 CSF Eosinophils % 0 % 07/27/20 20:00 CSF Eosinophils % 0 % 07/27/20 20:00 CSF Basophils 0 % 07/27/20 20:00 CSF Basophils 0 % 07/27/20 20:00 CSF Pathologist Review C 07/27/20 20:00 CSF Pathologist Review C 07/27/20 20:00 CSF Glucose 78 mg/dL 07/27/20 20:00 CSF Total Protein 42 mg/dL 07/27/20 20:00 Urine Opiates Screen Presumptive negative 07/27/20 21:38 Urine Methadone Screen Presumptive negative 07/27/20 21:38 Ur Barbiturates Screen Presumptive negative 07/27/20 21:38 Ur Phencyclidine Scrn Presumptive negative 07/27/20 21:38 Ur Amphetamines Screen Presumptive negative 07/27/20 21:38 U Benzodiazepines Scrn Presumptive negative 07/27/20 21:38 Urine Cocaine Screen Presumptive negative 07/27/20 21:38 U Marijuana (THC) Screen Presumptive negative 07/27/20 21:38 Drugs of Abuse Note Disclamer 07/27/20 21:38 Microbiology: Microbiology 07/27/20 18:58 Peripheral/Venous Blood Culture - Preliminary NO GROWTH AFTER 24 HOURS 07/27/20 18:54 Peripheral/Venous Blood Culture - Preliminary NO GROWTH AFTER 24 HOURS 07/27/20 20:00 Cerebral Spinal Fluid CSF Culture - Preliminary López/IV: Voiding Method Toilet IV Catheter Type [Left Forearm INT / Saline Lock ] IV Catheter Type [Right INT / Saline Lock Forearm] Active Medications - Current Medications Current Medications: Generic Name Dose Route Start Last Admin Trade Name Freq PRN Reason Stop Dose Admin Acetaminophen 650 mg 07/27/20 22:53 07/29/20 06:56 Tylenol PO 650 mg Q4H PRN Administration Pain MILD(1-3)/Fever >100.5/YOUNG Atovaquone/Proguanil 4 each 07/28/20 15:00 07/29/20 09:47 Malarone 250-100 Mg (Nf) PO 07/30/20 10:01 4 each DAILY RENE Administration Sodium Chloride 1,000 mls @ 150 mls/hr 07/27/20 23:00 07/29/20 08:41 Nacl 0.9% 1000 Ml IV 150 mls/hr DIRECT RENE Administration Potassium Phosphate 40 mmol/ 513.3333 mls @ 83 mls/hr 07/29/20 09:30 07/29/20 09:47 Sodium Chloride IV 07/29/20 15:41 83 mls/hr ONCE ONE Administration Miscellaneous Medication 217.92 mg 07/28/20 14:15 Artesunate IV 07/31/20 14:14 DAILY RENE Morphine Sulfate 2 mg 07/27/20 22:53 07/29/20 02:03 Morphine IV 2 mg Q4H PRN Administration Pain, Moderate (4-6) Ondansetron HCl 4 mg 07/27/20 22:53 07/29/20 09:57 Zofran IV 4 mg Q8H PRN Administration Nausea And Vomiting Sodium Chloride 10 ml 07/28/20 10:00 07/29/20 09:47 Sodium Chloride Flush Syringe 10 Ml IV 10 ml BID ERNE Administration Sodium Chloride 10 ml 07/27/20 22:53 07/28/20 05:41 Sodium Chloride Flush Syringe 10 Ml IV 10 ml PRN PRN Administration LINE FLUSH
--- NOTE | 2020-07-29 11:37 | Progress Note ---
Assessment and Plan Cultures: 07/27/2020 blood culture: no growth 07/27/2020 CSF culture: no growth A/P: 34/M with: #Febrile illness secondary to malaria: Likely falciparum. Recent travel to [facility]. I spoke to the micro lab, they saw ?ring forms on the smear, sample sent to [facility] for additional speciation. Also, locally, they are unable to perform a parasitemia index. Patient's mental status seems better, hence continue treatment with Malarone. #Acute encephalopathy: Probably from hyponatremia. Initial sodium was 126. Seems to be improving. Could also be related to malaria. #Acute kidney injury: Creatinine improving. #Elevated LFTs including bilirubin: Likely again from malaria, possibly some hemolysis going on. Improving. Recs: -continue PO Malarone 4 tabs daily x 3 more days. Patient vomited yesterday after the dose so unclear how much he absorbed -I spoke to the micro lab 07/28/2020, sample will be sent to [facility] for additional speciation of Plasmodium. Also, locally, they are unable to perform a parasitemia index -given clinical improvement, will likely not need IV artesunate -f/u G6PD, in case this is non-falciparum and patient may need primaquine later Eli Donaldson MD, FACP [facility], [facility] O: [phone] F: [phone] Subjective Date of service: 07/29/20 Interval history: Feeling better today. One fever today. Nausea better, d/w RN, got Zofran prior to Malarone so was able to keep it down. Objective - Exam Narrative Exam: Physical Exam: Constitutional: Alert, cooperative. No acute distress Head, Ears, Nose: Normocephalic, atraumatic. External ears, nose normal Eyes: Conjunctivae/corneas clear. No icterus. No ptosis. Neck: Supple, no meningeal signs Oral: dentition fair, no thrush Cardiovascular: S1, S2 normal. Respiratory: Good air entry, clear to auscultation bilaterally GI: Soft, non-tender; bowel sounds normal. No peritoneal signs Musculoskeletal: No pedal edema, no cyanosis. Skin: No rash or abscess Hem/Lymphatic: No palpable cervical or supraclavicular nodes. No lymphangitis Psych: Mood ok. Affect normal Neurological: Awake, alert, oriented. No gross abnormality - Constitutional Vitals: Vital Signs Temp Pulse Resp BP Pulse Ox 102.0 F H 90 18 150/80 98 07/29/20 07:27 07/29/20 09:03 07/29/20 09:03 07/29/20 07:27 07/29/20 07:27 Temperature -Last 24 Hours Temperature 102.0 F Temperature 99.0 F Temperature 98.3 F Temperature 98.9 F Temperature 102.9 F Temperature 101.4 F Temperature 98.8 F - Labs CBC & Chem 7: 07/28/20 05:56 07/29/20 05:53 Labs: Abnormal lab results 07/28/20 07/29/20 Range/Units 20:28 05:53 Sodium 134 L (137-145) mmol/L POC Glucose 116 H (70-105) mg/dL Calcium 6.9 L (8.4-10.2) mg/dL Phosphorus 1.20 L (2.5-4.5) mg/dL Total Bilirubin 1.80 H (0.1-1.2) mg/dL AST 62 H (5-40) units/L ALT 58 H (7-56) units/L Total Creatine Kinase 454 H (55-170) units/L Total Protein 6.1 L (6.3-8.2) g/dL Albumin 2.7 L (3.9-5) g/dL
--- NOTE | 2020-07-29 12:14 | Progress Note ---
Assessment and Plan 1. Acute kidney injury: Likely vasomotor KHOA in the setting of volume depletion. CT abdomen was negative for hydro. Urine studies ordered. Continue IV fluids. Monitor renal function. Creatinine level is better. Avoid nephrotoxic agents. Meds dosage based on GFR. 2. FEN: Hyponatremia, 2/2 volume depletion, improving, monitor. Hypokalemia, improved, monitor. Replete Phos. Monitor lytes and volume status. 3. Acute encephalopathy, POA. 4. Febrile illness: Secondary to malaria, likely falciparum. Followed by ID. 5. Elevated Transaminases and T.bili. 6. Thrombocytopenia. Will sign off. Please call with any questions. Subjective: Patient was seen and examined at the bedside. Doing ok. Examination: General appearance: well-developed, appears stated age, well nourished HEENT: ATNC, pupils equal Neck: trachea midline Respiratory: ctab Heart: regular, S1S2, no murmur Gastrointestinal: soft, normoactive bowel sounds, not tender Integumentary: no rash, warm and dry Neurologic: alert, oriented, conversing, non-focal Ext: no edema Subjective Date of service: 07/29/20 Objective - Vital Signs Vital signs: Vital Signs - 12hr 07/29/20 07/29/20 07/29/20 00:22 02:00 03:43 Temperature 99.0 F Pulse Rate 103 H 92 H Pulse Rate [ Left Radial] Pulse Rate [ Right Radial] Respiratory 20 18 Rate Blood Pressure 124/71 Blood Pressure [Left] O2 Sat by Pulse 98 Oximetry 07/29/20 07/29/20 07/29/20 07:27 09:03 11:57 Temperature 102.0 F H 101.6 F H Pulse Rate 109 H 107 H Pulse Rate [ 90 Left Radial] Pulse Rate [ 90 Right Radial] Respiratory 18 18 20 Rate Blood Pressure 150/80 Blood Pressure 113/61 [Left] O2 Sat by Pulse 98 98 Oximetry 07/29/20 12:00 Temperature Pulse Rate Pulse Rate [ Left Radial] Pulse Rate [ Right Radial] Respiratory 16 Rate Blood Pressure Blood Pressure [Left] O2 Sat by Pulse Oximetry - Lab 07/28/20 05:56 07/29/20 05:53 Most recent lab results Calcium 6.9 mg/dL (8.4-10.2) L 07/29/20 05:53 Phosphorus 1.20 mg/dL (2.5-4.5) L 07/29/20 05:53 Magnesium 2.20 mg/dL (1.7-2.3) 07/29/20 05:53 Medications & Allergies - Medications Allergies/Adverse Reactions: Allergies No Known Allergies Allergy (Verified 07/27/20 19:13) Home Medications: Home Medications Medication Instructions Recorded Confirmed Last Taken Type No Known Home Medications [No 07/27/20 07/27/20 Unknown History Reported Home Medications] Active Medications: Generic Name Dose Route Start Last Admin Trade Name Freq PRN Reason Stop Dose Admin Acetaminophen 650 mg 07/27/20 22:53 07/29/20 12:00 Tylenol PO 650 mg Q4H PRN Administration Pain MILD(1-3)/Fever >100.5/YOUNG Atovaquone/Proguanil 4 each 07/28/20 15:00 07/29/20 09:47 Malarone 250-100 Mg (Nf) PO 07/31/20 10:01 4 each DAILY RENE Administration Sodium Chloride 1,000 mls @ 150 mls/hr 07/27/20 23:00 07/29/20 08:41 Nacl 0.9% 1000 Ml IV 150 mls/hr DIRECT RENE Administration Potassium Phosphate 40 mmol/ 513.3333 mls @ 83 mls/hr 07/29/20 09:30 07/29/20 09:47 Sodium Chloride IV 07/29/20 15:41 83 mls/hr ONCE ONE Administration Morphine Sulfate 2 mg 07/27/20 22:53 07/29/20 02:03 Morphine IV 2 mg Q4H PRN Administration Pain, Moderate (4-6) Ondansetron HCl 4 mg 07/27/20 22:53 07/29/20 09:57 Zofran IV 4 mg Q8H PRN Administration Nausea And Vomiting Sodium Chloride 10 ml 07/28/20 10:00 07/29/20 09:47 Sodium Chloride Flush Syringe 10 Ml IV 10 ml BID RENE Administration Sodium Chloride 10 ml 07/27/20 22:53 07/28/20 05:41 Sodium Chloride Flush Syringe 10 Ml IV 10 ml PRN PRN Administration LINE FLUSH
[2020-07-29] MEDS: [UNRECOGNIZED DRUG - OTHER] IV SCH (19:37)
[2020-07-30] MEDS: SODIUM CHLORIDE 0.9% 1000 ML 1,000 ML IV SCH ×3 (04:01→23:01)
[2020-07-30] MEDS: ACETAMINOPHEN 325 MG TAB PO PRN (05:47)
[2020-07-30 07:41] LABS: Calcium 6.1 mg/dL (8.4-10.2)
--- NOTE | 2020-07-30 08:14 | Progress Note ---
Assessment and Plan -Febrile illness/malaria; Patient is on Malarone plan 4 times a day for 2 more days. Per ID Supportive care discharge planning on malarone. No fever Currently no fever --Acute metabolic encephalopathy: Patient had recent international travel [place] Status post lumbar puncture, CSF analysis unremarkable CSF cultures negative Continue Malarone and supportive care --Acute kidney injury; Due to vasomotor nephropathy Closely monitor renal function, avoid nephrotoxins Nephrology following --Hypophosphatemia; Replenish per protocol monitor electrolytes --Acute liver failure/transaminitis/bilirubinemia Probably related to malaria and possible hemolysis Resolving --Hypoproteinemia/severe malnutrition Sodium went back down to 128. Will increase normal saline. Supportive care nutrition supplements, --Hyponatremia; Continue replacement therapy with normal saline Sodium went back down to 128. Will increase normal saline. Mild improvement, nephrology following --Elevated CK; Gentle hydration closely monitor renal function --DVT prophylaxis; Subcu heparin, SCDs Subjective Date of service: 07/30/20 Principal diagnosis: Malaria Interval history: Patient much more alert today. Wondering when he can go home. Spoke with son at [phone] and explained all problems and plan to patient's satisfaction. Patient was afebrile today. No shortness of breath was not altered. Objective - Constitutional Vitals: Vital Signs - 12hr 07/29/20 07/29/20 07/29/20 20:23 21:36 22:33 Temperature 101.9 F H 98.3 F Pulse Rate 111 H Respiratory 16 18 Rate Blood Pressure 103/52 Blood Pressure [Left] O2 Sat by Pulse 97 Oximetry 07/29/20 07/30/20 07/30/20 23:01 02:00 03:40 Temperature 98.8 F 99.6 F Pulse Rate 98 H 91 H 90 Respiratory 18 18 Rate Blood Pressure 96/46 96/56 Blood Pressure [Left] O2 Sat by Pulse 99 96 Oximetry 07/30/20 07:45 Temperature 98.3 F Pulse Rate 84 Respiratory 19 Rate Blood Pressure Blood Pressure 116/75 [Left] O2 Sat by Pulse 97 Oximetry General appearance: Present: no acute distress, well-nourished - EENT Eyes: PERRL, EOM intact ENT: hearing intact, clear oral mucosa Ears: bilateral: normal - Neck Neck: supple, normal ROM - Respiratory Respiratory effort: normal Respiratory: bilateral: CTA - Breasts Breasts: normal - Cardiovascular Rhythm: regular Heart Sounds: Present: S1 & S2. Absent: gallop, rub Extremities: pulses intact, No edema, normal color, Full ROM - Gastrointestinal General gastrointestinal: Present: soft, non-tender, non-distended, normal bowel sounds - Genitourinary Male genitourinary: normal - Integumentary Integumentary: clear, warm, dry - Musculoskeletal Musculoskeletal: 1, strength equal bilaterally - Neurologic Neurologic: moves all extremities - Psychiatric Psychiatric: memory intact, appropriate mood/affect, intact judgment & insight - Labs CBC & Chem 7: 07/28/20 05:56 07/30/20 05:33 Labs: Abnormal lab results 07/30/20 Range/Units 05:33 Sodium 128 L (137-145) mmol/L Creatinine 1.4 H (0.8-1.3) mg/dL Calcium 6.1 L (8.4-10.2) mg/dL Phosphorus 1.30 L (2.5-4.5) mg/dL HEART Score - HEART Score Troponin: Troponin T < 0.010 ng/mL (0.00-0.029) 07/27/20 18:04
[2020-07-30] MEDS ORDERED: CALCIUM GLUCONATE 2,000 MG in SODIUM CHLORIDE 0.9% 100 ML IV ONE (09:00)
[2020-07-30] MEDS ORDERED: MAGNESIUM SULFATE 4 GM/100 ML BAG IV ONE (09:00)
[2020-07-30] MEDS: ONDANSETRON 4 MG/2 ML INJ IV PRN (09:52)
[2020-07-30] MEDS: PROGUANIL PO SCH (09:52)
[2020-07-30] MEDS: ATOVAQUONE PO SCH (09:52)
[2020-07-30 13:29] LABS: Albumin 2.1 g/dL (3.9-5); Calcium 6.6 mg/dL (8.4-10.2)
[2020-07-30] MEDS: MORPHINE 2 MG/1 ML INJ IV PRN (23:21)
[2020-07-31] MEDS: SODIUM CHLORIDE 0.9% 1000 ML 1,000 ML IV SCH ×3 (06:13→21:37)
[2020-07-31] MEDS: PROGUANIL PO SCH (10:14)
[2020-07-31] MEDS: ATOVAQUONE PO SCH (10:14)
[2020-07-31] MEDS: ONDANSETRON 4 MG/2 ML INJ IV PRN (10:17)
--- NOTE | 2020-07-31 16:13 | Progress Note ---
Assessment and Plan -Febrile illness/malaria; Patient is on Malarone plan 4 times a day for 1 more days. Most likely can discharge anticipated discharge tomorrow on antimalarial drug. Per ID Supportive care discharge planning on malarone. No fever --Acute metabolic encephalopathy: Resolved. Patient is alert and oriented x4. Patient had recent international travel [place] Status post lumbar puncture, CSF analysis unremarkable CSF cultures negative Continue Malarone and supportive care --Acute kidney injury; Due to vasomotor nephropathy almost completely resolved creatinine down to 1.5. Closely monitor renal function, avoid nephrotoxins Nephrology following --Rhabdomyolysis --resolved this is the reason for urine being brown this and acute acute kidney injury. Will obtain another urine prior to discharge. --Hypophosphatemia; Replenish per protocol monitor electrolytes --Acute liver failure/transaminitis/bilirubinemia Probably related to malaria and possible hemolysis Resolving also additional reason for tea colored urine. Transaminases bilirubin also improving. --Hypoproteinemia/severe malnutrition Sodium went back down to 128. Will increase normal saline. Supportive care nutrition supplements, --Hyponatremia; Continue replacement therapy with normal saline Sodium went back down to 128. Will increase normal saline. Mild improvement, nephrology following sodium has improved secondary to reinitiating normal saline from 1 28-1 30 this morning. --Elevated CK; Gentle hydration closely monitor renal function --DVT prophylaxis; Subcu heparin, SCDs Subjective Date of service: 07/31/20 Principal diagnosis: Malaria Interval history: Patient is alert oriented x 4 at baseline. Afebrile. Concerns about urine being brown darker color no pain no shortness of breath no fever no dyspnea on exertion. Patient up walking around without difficulty. Objective - Constitutional Vitals: Vital Signs - 12hr 07/31/20 07/31/20 07/31/20 07:56 10:00 10:13 Temperature 97.9 F Pulse Rate 75 86 Pulse Rate [ 98 H Left Radial] Pulse Rate [ 98 H Right Radial] Respiratory 20 19 Rate Blood Pressure 116/75 111/70 O2 Sat by Pulse 98 98 99 Oximetry 07/31/20 11:58 Temperature Pulse Rate 82 Pulse Rate [ Left Radial] Pulse Rate [ Right Radial] Respiratory 19 Rate Blood Pressure 130/73 O2 Sat by Pulse 97 Oximetry General appearance: Present: no acute distress, well-nourished - EENT Eyes: PERRL, EOM intact ENT: hearing intact, clear oral mucosa Ears: bilateral: normal - Neck Neck: supple, normal ROM - Respiratory Respiratory effort: normal Respiratory: bilateral: CTA - Breasts Breasts: normal - Cardiovascular Rhythm: regular Heart Sounds: Present: S1 & S2. Absent: gallop, rub Extremities: pulses intact, No edema, normal color, Full ROM - Gastrointestinal General gastrointestinal: Present: soft, non-tender, non-distended, normal bowel sounds - Genitourinary Male genitourinary: normal - Integumentary Integumentary: clear, warm, dry - Musculoskeletal Musculoskeletal: 1, strength equal bilaterally - Neurologic Neurologic: moves all extremities - Psychiatric Psychiatric: memory intact, appropriate mood/affect, intact judgment & insight - Labs CBC & Chem 7: 07/28/20 05:56 07/30/20 11:58 Labs: Abnormal lab results 07/30/20 Range/Units 21:49 POC Glucose 122 H (70-105) mg/dL HEART Score - HEART Score Troponin: Troponin T < 0.010 ng/mL (0.00-0.029) 07/27/20 18:04
[2020-07-31] MEDS: ACETAMINOPHEN 325 MG TAB PO PRN ×2 (16:19→20:16)
[2020-07-31] MEDS: MORPHINE 2 MG/1 ML INJ IV PRN (21:37)
[2020-08-01] MEDS: SODIUM CHLORIDE 0.9% 1000 ML 1,000 ML IV SCH ×2 (04:10→16:59)
[2020-08-01] MEDS: ACETAMINOPHEN 325 MG TAB PO PRN (10:18)
--- NOTE | 2020-08-01 16:01 | Progress Note ---
Assessment and Plan Assessment and plan: -Febrile illness/malaria; Patient completed Malarone per ID Afebrile, continue supportive care Follow ID recommendations --Acute metabolic encephalopathy: Resolved. Patient had recent international travel [place] Status post lumbar puncture, CSF analysis unremarkable CSF cultures negative Completed Malarone --Acute kidney injury; Due to vasomotor nephropathy Significant improvement , creatinine 1.5 Closely monitor renal function, avoid nephrotoxins Nephrology following --Rhabdomyolysis ; improved Plenty of oral fluids, gentle IV hydration --Hypophosphatemia; Replenished, follow electrolytes --Acute liver failure/transaminitis/bilirubinemia Probably related to malaria and possible hemolysis Transaminases bilirubin also improving. --Hypoproteinemia/severe malnutrition Nutrition supplements and supportive care --Hyponatremia; Continue replacement therapy with normal saline Sodium went back down to 128. Will increase normal saline. nephrology following, closely monitor electrolytes --DVT prophylaxis; Subcu heparin, SCDs We will closely monitor the patient and adjust management as needed Disposition per ID, possible discharge home tomorrow if stable Plan of care reviewed with the patient and his nurse as well as case management History Interval history: I have seen and examined the patient at the bedside this afternoon Patient's chart and medications reviewed Patient feels slightly better, afebrile Completed Malarone treatment Vital signs noted Hospitalist Physical - Constitutional Vitals: Temp Pulse Resp BP Pulse Ox 98.4 F 76 18 126/79 98 08/01/20 08:00 08/01/20 14:00 08/01/20 08:00 08/01/20 08:00 08/01/20 09:00 General appearance: Present: no acute distress, well-nourished - EENT Eyes: Present: PERRL, EOM intact - Neck Neck: Present: supple, normal ROM - Respiratory Respiratory effort: normal Respiratory: bilateral: diminished, negative: rales, rhonchi, wheezing - Cardiovascular Rhythm: regular Heart Sounds: Present: S1 & S2 - Extremities Extremities: no ischemia, No edema - Abdominal General gastrointestinal: soft, non-tender, non-distended, normal bowel sounds - Integumentary Integumentary: Present: clear, warm - Psychiatric Psychiatric: appropriate mood/affect, cooperative - Neurologic Neurologic: moves all extremities HEART Score - HEART Score Troponin: Troponin T < 0.010 ng/mL (0.00-0.029) 07/27/20 18:04 Results - Labs CBC & Chem 7: 07/28/20 05:56 07/30/20 11:58 Labs: Laboratory Last Values WBC 8.0 K/mm3 (4.5-11.0) 07/28/20 05:56 RBC 4.83 M/mm3 (3.65-5.03) 07/28/20 05:56 Hgb 15.0 gm/dl (11.8-15.2) 07/28/20 05:56 Hct 43.9 % (35.5-45.6) 07/28/20 05:56 MCV 91 fl (84-94) 07/28/20 05:56 MCH 31 pg (28-32) 07/28/20 05:56 MCHC 34 % (32-34) 07/28/20 05:56 RDW 14.0 % (13.2-15.2) 07/28/20 05:56 Plt Count 29 K/mm3 (140-440) L 07/28/20 05:56 Lymph % (Auto) 12.5 % (13.4-35.0) L 07/28/20 05:56 [place] % (Auto) 13.8 % (0.0-7.3) H 07/28/20 05:56 Eos % (Auto) 0.1 % (0.0-4.3) 07/28/20 05:56 Baso % (Auto) 0.5 % (0.0-1.8) 07/28/20 05:56 Lymph # (Auto) 1.0 K/mm3 (1.2-5.4) L 07/28/20 05:56 [place] # (Auto) 1.1 K/mm3 (0.0-0.8) H 07/28/20 05:56 Eos # (Auto) 0.0 K/mm3 (0.0-0.4) 07/28/20 05:56 Baso # (Auto) 0.0 K/mm3 (0.0-0.1) 07/28/20 05:56 Seg Neutrophils % 73.1 % (40.0-70.0) H 07/28/20 05:56 Seg Neutrophils # 5.8 K/mm3 (1.8-7.7) 07/28/20 05:56 PT 13.9 Sec. (12.2-14.9) 07/28/20 05:56 INR 1.06 (0.87-1.13) 07/28/20 05:56 APTT 32.1 Sec. (24.2-36.6) 07/27/20 18:04 Thrombin Time 16.8 Sec. (15.1-19.6) 07/27/20 18:04 Sodium 130 mmol/L (137-145) L 07/30/20 11:58 Potassium 3.6 mmol/L (3.6-5.0) 07/30/20 11:58 Chloride 100.1 mmol/L (98-107) 07/30/20 11:58 Carbon Dioxide 21 mmol/L (22-30) L 07/30/20 11:58 Anion Gap 13 mmol/L 07/30/20 11:58 BUN 18 mg/dL (9-20) 07/30/20 11:58 Creatinine 1.5 mg/dL (0.8-1.3) H 07/30/20 11:58 Estimated GFR 54 ml/min 07/30/20 11:58 BUN/Creatinine Ratio 12 % 07/30/20 11:58 Glucose 102 mg/dL (75-100) H 07/30/20 11:58 POC Glucose 99 mg/dL (70-105) 08/01/20 11:44 Lactic Acid 1.90 mmol/L (0.7-2.0) 07/27/20 18:54 Calcium 6.6 mg/dL (8.4-10.2) L 07/30/20 11:58 Phosphorus 1.30 mg/dL (2.5-4.5) L 07/30/20 05:33 Magnesium 2.20 mg/dL (1.7-2.3) 07/29/20 05:53 Total Bilirubin 1.30 mg/dL (0.1-1.2) H 07/30/20 11:58 AST 80 units/L (5-40) H 07/30/20 11:58 ALT 51 units/L (7-56) 07/30/20 11:58 Alkaline Phosphatase 54 units/L (35-129) 07/30/20 11:58 Ammonia 41.0 umol/L (25-60) 07/27/20 18:04 Total Creatine Kinase 454 units/L (55-170) H 07/29/20 05:53 CK-MB (CK-2) 2.4 ng/mL (0.0-4.0) 07/27/20 18:04 CK-MB (CK-2) Rel Index 0.2 (0-4) 07/27/20 18:04 Troponin T < 0.010 ng/mL (0.00-0.029) 07/27/20 18:04 Total Protein 5.5 g/dL (6.3-8.2) L 07/30/20 11:58 Albumin 2.1 g/dL (3.9-5) L 07/30/20 11:58 Albumin/Globulin Ratio 0.6 % 07/30/20 11:58 Urine Color Itzel (Yellow) 07/27/20 Unknown Urine Turbidity Cloudy (Clear) 07/27/20 Unknown Urine pH 5.0 (5.0-7.0) 07/27/20 Unknown Ur Specific [place] 1.012 (1.003-1.030) 07/27/20 Unknown Urine Protein 100 mg/dl mg/dL (Negative) 07/27/20 Unknown Urine Glucose (UA) Neg mg/dL (Negative) 07/27/20 Unknown Urine Ketones Neg mg/dL (Negative) 07/27/20 Unknown Urine Blood Lg (Negative) 07/27/20 Unknown Urine Nitrite Neg (Negative) 07/27/20 Unknown Urine Bilirubin Neg (Negative) 07/27/20 Unknown Urine Urobilinogen 4.0 mg/dL (<2.0) 07/27/20 Unknown Ur Leukocyte Esterase Neg (Negative) 07/27/20 Unknown Urine WBC (Auto) 4.0 /HPF (0.0-6.0) 07/27/20 Unknown Urine RBC (Auto) 2.0 /HPF (0.0-6.0) 07/27/20 Unknown U Epithel Cells (Auto) < 1.0 /HPF (0-13.0) 07/27/20 Unknown Urine Bacteria (Auto) 1+ /HPF (Negative) 07/27/20 Unknown CSF Appearance Clear 07/27/20 20:00 CSF Appearance Clear 07/27/20 20:00 CSF Color Colorless 07/27/20 20:00 CSF Color Colorless 07/27/20 20:00 CSF WBC 4 /mm3 (1-10) 11/18/20 20:00 CSF WBC 12 /mm3 (1-10) 07/27/20 20:00 CSF RBC 0 /mm3 (0-0) 07/27/20 20:00 CSF RBC 2 /mm3 (0-0) 07/27/20 20:00 CSF Seg Neutrophils 0 % (0-6) 07/27/20 20:00 CSF Seg Neutrophils 0 % (0-6) 07/27/20 20:00 CSF Lymphocytes % 74.5 % (40-80) 07/27/20 20:00 CSF Lymphocytes % 83.3 % (40-80) 07/27/20 20:00 CSF Reactive Lymphs 0 % 07/27/20 20:00 CSF Reactive Lymphs 0 % 07/27/20 20:00 CSF Monocytes % 16.7 % (15-45) 07/27/20 20:00 CSF Monocytes % 25.5 % (15-45) 07/27/20 20:00 CSF Eosinophils % 0 % 07/27/20 20:00 CSF Eosinophils % 0 % 07/27/20 20:00 CSF Basophils 0 % 07/27/20 20:00 CSF Basophils 0 % 07/27/20 20:00 CSF Pathologist Review C 07/27/20 20:00 CSF Pathologist Review C 07/27/20 20:00 CSF Glucose 78 mg/dL 07/27/20 20:00 CSF Total Protein 42 mg/dL 07/27/20 20:00 Urine Opiates Screen Presumptive negative 07/27/20 21:38 Urine Methadone Screen Presumptive negative 07/27/20 21:38 Ur Barbiturates Screen Presumptive negative 07/27/20 21:38 Ur Phencyclidine Scrn Presumptive negative 07/27/20 21:38 Ur Amphetamines Screen Presumptive negative 07/27/20 21:38 U Benzodiazepines Scrn Presumptive negative 07/27/20 21:38 Urine Cocaine Screen Presumptive negative 07/27/20 21:38 U Marijuana (THC) Screen Presumptive negative 07/27/20 21:38 Drugs of Abuse Note Disclamer 07/27/20 21:38 Microbiology: Microbiology 07/27/20 18:04 Blood - Peripheral/Venous Parasite Direct Smear - Final 07/27/20 18:58 Peripheral/Venous Blood Culture - Preliminary NO GROWTH AFTER 4 DAYS 07/27/20 18:54 Peripheral/Venous Blood Culture - Preliminary NO GROWTH AFTER 4 DAYS López/IV: Voiding Method Toilet IV Catheter Type [Left Forearm INT / Saline Lock ] IV Catheter Type [Right INT / Saline Lock Forearm] Active Medications - Current Medications Current Medications: Generic Name Dose Route Start Last Admin Trade Name Freq PRN Reason Stop Dose Admin Acetaminophen 650 mg 07/27/20 22:53 08/01/20 10:18 Tylenol PO 650 mg Q4H PRN Administration Pain MILD(1-3)/Fever >100.5/YUONG Sodium Chloride 1,000 mls @ 150 mls/hr 07/27/20 23:00 08/01/20 04:10 Nacl 0.9% 1000 Ml IV 150 mls/hr DIRECT RENE Administration Morphine Sulfate 2 mg 07/27/20 22:53 07/31/20 21:37 Morphine IV 2 mg Q4H PRN Administration Pain, Moderate (4-6) Ondansetron HCl 4 mg 07/27/20 22:53 07/31/20 10:17 Zofran IV 4 mg Q8H PRN Administration Nausea And Vomiting Sodium Chloride 10 ml 07/28/20 10:00 07/31/20 21:37 Sodium Chloride Flush Syringe 10 Ml IV 10 ml BID RENE Administration Sodium Chloride 10 ml 07/27/20 22:53 07/28/20 05:41 Sodium Chloride Flush Syringe 10 Ml IV 10 ml PRN PRN Administration LINE FLUSH
[2020-08-01 17:40] LABS: Calcium 6.2 mg/dL (8.4-10.2)
--- NOTE | 2020-08-01 18:01 | Progress Note ---
Assessment and Plan Cultures: 07/27/2020 blood culture: no growth 07/27/2020 CSF culture: no growth A/P: 34/M with: #Febrile illness secondary to malaria: Likely falciparum. Recent travel to [facility]. I spoke to the micro lab, they saw ?ring forms on the smear, sample sent to [facility] for additional speciation. Also, locally, they are unable to perform a parasitemia index. Patient's mental status seems better, hence continue treatment with Malarone. #Acute encephalopathy: Probably from hyponatremia. Initial sodium was 126. Seems to be improving. Could also be related to malaria. #Acute kidney injury: Creatinine improving. #Elevated LFTs including bilirubin: Likely again from malaria, possibly some hemolysis going on. Improving. Recs: -continue PO Malarone 4 tabs daily x 3 more days. Patient vomited yesterday after the dose so unclear how much he absorbed -Dr. Donaldson spoke to the micro lab 07/28/2020, sample will be sent to [facility] for additional speciation of Plasmodium. Also, locally, they are unable to perform a parasitemia index -given clinical improvement, will likely not need IV artesunate -f/u G6PD, in case this is non-falciparum and patient may need primaquine later Follow-up in ID clinic in 2 weeks. Okay to discharge after completing the 3 days of Malarone. Infectious disease will sign off. Please call with questions. Eugenie Rico MD [facility] ([facility]) O: [phone] F: [phone] Subjective Date of service: 08/01/20 Principal diagnosis: Malaria Interval history: Afebrile improved. No other acute complaints. Objective - Exam Narrative Exam: Physical Exam: Constitutional: Alert, cooperative. No acute distress Head, Ears, Nose: Normocephalic, atraumatic. External ears, nose normal Eyes: Conjunctivae/corneas clear. No icterus. No ptosis. Neck: Supple, no meningeal signs Oral: dentition fair, no thrush Cardiovascular: S1, S2 normal. Respiratory: Good air entry, clear to auscultation bilaterally GI: Soft, non-tender; bowel sounds normal. No peritoneal signs. Musculoskeletal: No pedal edema, no cyanosis. Skin: No rash or abscess Hem/Lymphatic: No palpable cervical or supraclavicular nodes. No lymphangitis Psych: Mood ok. Affect normal Neurological: Awake, alert, oriented. No gross abnormality - Constitutional Vitals: Vital Signs Temp Pulse Resp BP Pulse Ox 98.4 F 76 18 126/79 98 08/01/20 08:00 08/01/20 14:00 08/01/20 08:00 08/01/20 08:00 08/01/20 09:00 Temperature -Last 24 Hours Temperature 98.4 F Temperature 97.9 F Temperature 98.2 F Temperature 98.1 F - Labs CBC & Chem 7: 07/28/20 05:56 08/01/20 16:21 Labs: Abnormal lab results 08/01/20 08/01/20 Range/Units 16:21 16:21 Sodium 135 L (137-145) mmol/L Potassium 3.5 L (3.6-5.0) mmol/L Creatinine 1.6 H (0.8-1.3) mg/dL Calcium 6.2 L (8.4-10.2) mg/dL Phosphorus 1.70 L (2.5-4.5) mg/dL Magnesium 2.50 H (1.7-2.3) mg/dL
[2020-08-01] MEDS ORDERED: POTASSIUM PHOSPHATE 45 MMOL in SODIUM CHLORIDE 0.9% 500 ML 500 ML IV ONE (20:00)
[2020-08-01] MEDS: MORPHINE 2 MG/1 ML INJ IV PRN (21:41)
[2020-08-02 06:03] LABS: BUN/Creatinine Ratio 10; Blood Urea Nitrogen 13 mg/dL (9-20); Hemolysis Index 13
[2020-08-02 06:07] LABS: Calcium 5.8 mg/dL (8.4-10.2)
[2020-08-02] MEDS ORDERED: CALCIUM GLUCONATE 2,000 MG in SODIUM CHLORIDE 0.9% 100 ML IV ONE (06:09)
[2020-08-02] MEDS: SODIUM CHLORIDE 0.9% 1000 ML 1,000 ML IV SCH (06:31)
[2020-08-02] MEDS: ACETAMINOPHEN 325 MG TAB PO PRN (09:44)
[2020-08-02] MEDS: MORPHINE 2 MG/1 ML INJ IV PRN (09:45)
--- NOTE | 2020-08-02 12:38 | Discharge Summary ---
Providers - Providers Date of Admission: 07/27/20 21:40 Date of discharge: 08/02/20 Attending physician: ESTHELA TORRES 07/27/20 18:15 Speech Therapy Evaluation and Treat [CONS] Urgent Reason For Exam: failed swallow screen 07/27/20 22:53 Consult to Physician [CONS] Routine Comment: Consulting Provider: TERESA NELSON Physician Instructions: Reason For Exam: Altered mental status,recent international travel 07/28/20 04:06 Consult to Physician [CONS] Routine Comment: Consulting Provider: YUKI KNIGHT Physician Instructions: Reason For Exam: KHOA 08/01/20 18:36 Physical Therapy Evaluation and Treat [CONS] Routine Comment: Evaluate and treat Reason For Exam: Unsteady gait/DC needs Primary care physician: GARMENT FINISHER Hospitalization Condition: Fair Disposition: DC/[place]-06 HOME [facility] Time spent for discharge: 32 min Core Measure Documentation - Palliative Care Palliative Care/ Comfort Measures: Not Applicable - Core Measures Any of the following diagnoses?: none Exam - Constitutional Vitals: Temp Pulse Resp BP Pulse Ox 98.1 F 72 20 144/88 98 08/02/20 08:00 08/02/20 08:00 08/02/20 08:00 08/02/20 08:00 08/02/20 04:10 General appearance: Present: no acute distress, well-nourished - EENT Eyes: Present: PERRL, EOM intact - Neck Neck: Present: supple, normal ROM Plan Activity: advance as tolerated, fall precautions Diet: regular Follow up with: AVELINO CHAUHAN MD [Primary Care Provider] - 3-5 Days DIEGO SINCLAIR MD [Staff Physician] - 14 Days Prescriptions: Sodium Phosphate,Dibasic Dihyd [Sodium Phosphate] 500 gm MC TID #30 powder Calcium Carbonate [Tums 500MG CHEW] 500 mg PO Q8HR #90 tab
[2020-08-02 18:34] VITALS: BP 145/85
[2020-08-02] MEDS ORDERED: CALCIUM CARBONATE 500 MG TAB CHEW PO SCH (22:00)
== END 2020-08-02 18:38 | disposition home health service (06) | DRG 867 ==
LOC: ED 17:33 → 4A 21:40
PROVIDERS: ADMIT Internal Medicine Geriatric Medicine; ATTEND Internal Medicine
PROC: 009U3ZX Drainage of Spinal Canal, Percutaneous Approach, Diagnostic (ICD-10-PCS; principal; 2020-07-27)
DX: B50.9 Plasmodium falciparum malaria, unspecified (principal); N17.0 Acute kidney failure with tubular necrosis; G93.41 Metabolic encephalopathy; E43 Unspecified severe protein-calorie malnutrition; K72.00 Acute and subacute hepatic failure without coma; E87.1 Hypo-osmolality and hyponatremia; M62.82 Rhabdomyolysis; E87.6 Hypokalemia; D69.6 Thrombocytopenia, unspecified; E83.39 Other disorders of phosphorus metabolism; Z79.899 Other long term (current) drug therapy; Z68.30 Body mass index [BMI] 30.0-30.9, adult
CPT/HCPCS: 36415; 70450; 71045; 74176; 80048; 80053; 80307; 81001; 82140; 82550; 82553; 82947; 82955; 82962; 83735; 84100; 84160; 84484; 85025; 85610; 85670; 85730; 87040; 87116; 87207; 89051; 93005; G0378; J0610; J0696; J1644; J2270; J2405; J3370; J3475; J7030; J7040

== ENCOUNTER 2020-08-09 19:19 | Emergency (ER) | payer SELFPAY ==
--- NOTE | 2020-08-09 20:43 | Event Note ---
ED Screening Note ED Screening Note: states he has frequent urination state he has feet swelling no fever no n/v/d no cough no SOB PMHx recent malaria no allergies to meds travel to [place] last month This initial assessment/diagnostic orders/clinical plan/treatment(s) is/are subject to change based on patients health status, clinical progression and re- assessment by fellow clinical providers in the ED. Further treatment and workup at subsequent clinical providers discretion. Patient/guardian urged not to elope from the ED as their condition may be serious if not clinically assessed and managed. Initial orders include: labs, UA
--- NOTE | 2020-08-09 21:45 | Emergency Department Report ---
HPI - General Chief Complaint: Extremity Problem,Nontraumatic Time Seen by Provider: 08/09/20 20:41 - HPI HPI: This is a 34-year-old -[place] male presents to the emergency department with a 1 week history of bilateral foot pain and swelling. There is also pain and swelling to the distal lower extremities. He denies any fall or injury. He denies any change in color, rash or lesions. He says that the symptoms started since he was admitted here in mid to late July for malaria. Otherwise he denies any past medical history. He has not taken anything for symptoms prior to presentation. The pain worsens with palpation or ambulation. The patient had travel to [facility] a few weeks ago prior to his most recent admission. He denies any fever, chest pain, shortness of breath. ED Past Medical Hx - Past Medical History Previous Medical History?: Yes Hx Asthma: Yes Additional medical history: Bronchitis - Surgical History Past Surgical History?: No - Social History Smoking Status: Never Smoker Substance Use Type: Alcohol - Medications Home Medications: Home Medications Medication Instructions Recorded Confirmed Last Taken Type Calcium Carbonate [Tums 500MG CHEW] 500 mg PO Q8HR #90 tab 08/02/20 Unknown Rx Sodium Phosphate,Dibasic Dihyd 500 gm MC TID #30 powder 08/02/20 Unknown Rx [Sodium Phosphate] HYDROcodone/APAP 5-325 [[place] 1 each PO Q6HR PRN #10 tablet 08/09/20 Unknown Rx 5/325] ED Review of Systems ROS: Stated complaint: FEET SWELLING Other details as noted in HPI Comment: All other systems reviewed and negative Constitutional: denies: chills, fever Eyes: denies: eye pain, vision change ENT: denies: ear pain, throat pain Respiratory: denies: cough, shortness of breath Cardiovascular: edema. denies: chest pain, palpitations Gastrointestinal: denies: abdominal pain, vomiting Genitourinary: denies: dysuria, discharge Musculoskeletal: joint swelling, arthralgia Skin: denies: rash, lesions Neurological: denies: numbness, paresthesias Physical Exam - Physical Exam Vital Signs: Vital Signs 08/09/20 19:50 Temperature 97.9 F Pulse Rate 99 H Respiratory 17 Rate Blood Pressure 147/106 O2 Sat by Pulse 98 Oximetry Physical Exam: GENERAL: The patient is well-developed well-nourished. HENT: Normocephalic. Atraumatic. Patient has moist mucous membranes. EYES: Extraocular motions are intact. NECK: Supple. Trachea is midline. CHEST/LUNGS: Clear to auscultation. There is no respiratory distress noted. HEART/CARDIOVASCULAR: Regular. There is no tachycardia. There is no murmur. ABDOMEN: Abdomen is soft, nontender. Patient has normal bowel sounds. SKIN: Skin is warm and dry. There is mild nonpitting swelling to the bilateral feet and ankles and distal lower extremities. No erythema, rash, lesions, weeping. NEURO: The patient is awake, alert, and oriented. The patient is cooperative. The patient has no focal neurologic deficits. Normal speech. MUSCULOSKELETAL: There is tenderness to palpation to the bilateral feet, ankles and distal lower extremities. There is no limitation range of motion. +2/4 dorsalis pedis pulse bilaterally. Capillary refill less than 2 seconds to the bilateral feet/toes. ED Course Vital Signs 08/09/20 19:50 Temperature 97.9 F Pulse Rate 99 H Respiratory 17 Rate Blood Pressure 147/106 O2 Sat by Pulse 98 Oximetry ED Medical Decision Making - Lab Data Result diagrams: 08/09/20 21:22 08/09/20 21:22 - Radiology Data Radiology results: report reviewed DUPLEX DOPPLER LOWER EXTREMITY VEINS, BILATERAL INDICATION: b/l LE and foot pain and swelling. TECHNIQUE: Duplex doppler imaging was performed through the veins of both lower extremities using venous compression and other maneuvers. COMPARISON: No relevant prior imaging study available. FINDINGS: Right Common femoral vein: Negative. Right Superficial femoral vein: Negative. Right Popliteal vein: Negative. Right Calf veins: Negative. Left Common femoral vein: Negative. Left Superficial femoral vein: Negative. Left Popliteal vein: Negative. Left Calf veins: Negative. Additional findings: None.. IMPRESSION: 1. No sonographic evidence for DVT in either lower extremity. - Medical Decision Making This patient presents to the emergency department with the complaint of about a 1 week history of bilateral foot and ankle pain and swelling. The pain is reproducible to palpation. There is some mild nonpitting swelling of the distal lower extremities, but no skin color change, rash or lesions. He appears neurovascularly intact. There is full range of motion, no numbness or paresthesias, and the patient has good distal pulses. Bilateral lower extremity venous Doppler ultrasound was negative for any DVT. Labs have been unremarkable including CBC, metabolic panel and BNP level. Patient denies any recent trauma, injury or inciting event. Vital signs have been reassuring throughout his ED course including being afebrile. The patient does not appear to have any emergent medical condition and he does not require admission at this time. He was given 1 dose of Lasix here to try and diurese some of the edema off of the distal lower extremities. Patient has been given outpatient referrals for podiatry and an orthopedist. He will return to the emergency department with any worsening of his symptoms or with any acute distress. Critical Care Time: No Critical care attestation.: If time is entered above; I have spent that time in minutes in the direct care of this critically ill patient, excluding procedure time. ED Disposition Clinical Impression: Foot pain, bilateral, Bilateral swelling of feet and ankles Disposition: TO HOME OR SELFCARE Is pt being admited?: No Condition: Stable Instructions: Foot Pain, Peripheral Edema Additional Instructions: Please follow-up with a primary care physician in the next few days. I have given you a referral for a local contracts administrator, Dr. Poon, as well as a local orthopedist, Dr. Dai, to follow-up regarding your foot pain and swelling. You have been prescribed a medication that is sedating and therefore should not be taken prior to driving, working, and responsible for children and in no way should be mixed with alcohol of any quantity. Return to the emergency department with any worsening of your symptoms, new or concerning symptoms not addressed during this current emergency department visit, or with any acute distress. Prescriptions: HYDROcodone/APAP 5-325 [[place] 5/325] 1 each PO Q6HR PRN #10 tablet PRN Reason: Pain Referrals: MARGARITA POON DPM [Staff Physician] - 3-5 Days MYLENE DAI MD [Staff Physician] - 3-5 Days Time of Disposition: 23:29
[2020-08-09 22:33] LABS: Basophils % (Auto) 0.5 % (0.0-1.8); Eosinophils % (Auto) 0.2 % (0.0-4.3); Hematocrit 35.8 % (35.5-45.6); Hemoglobin 12.2 gm/dl (11.8-15.2); Lymphocytes # (Auto) 3.1 K/mm3 (1.2-5.4); Mean Corpuscular HGB Conc 34 % (32-34); Mean Corpuscular Volume 91 fl (84-94); Monocytes % (Auto) 15.1 % (0.0-7.3); Platelet Count 322 K/mm3 (140-440); Red Blood Count 3.95 M/mm3 (3.65-5.03); Red Cell Distribution Width 14.6 % (13.2-15.2)
[2020-08-09 22:55] LABS: Alanine Aminotransferase 43 units/L (7-56); Albumin 2.8 g/dL (3.9-5); BUN/Creatinine Ratio 6; Blood Urea Nitrogen 7 mg/dL (9-20); Calcium 8.3 mg/dL (8.4-10.2); Hemolysis Index 55
[2020-08-09] MEDS ORDERED: FUROSEMIDE 20 MG TAB PO ONE ×2 (23:27→23:31)
[2020-08-10] MEDS ORDERED: HYDROcodone/ACETAMINOPHEN 5-325 MG TAB PO ONE (00:09)
[2020-08-10 00:25] LABS: Hyaline Casts,Urine 1 /LPF
[2020-08-10 00:46] VITALS: BP 150/96
[2020-08-10 01:05] LABS: Bilirubin,Urine NEG (Negative); Blood,Urine SM (Negative); Color,Urine Yellow (Yellow)
--- NOTE | 2020-08-10 07:41 | Vascular Lab Report ---
DUPLEX DOPPLER LOWER EXTREMITY VEINS, BILATERAL INDICATION: b/l LE and foot pain and swelling. TECHNIQUE: Duplex doppler imaging was performed through the veins of both lower extremities using venous roberto ceasar and other maneuvers. COMPARISON: No relevant prior imaging study available. FINDINGS: Right Common femoral vein: Negative. Right Superficial femoral vein: Negative. Right Popliteal vein: Negative. Right Calf veins: Negative. Left Common femoral vein: Negative. Left Superficial femoral vein: Negative. Left Popliteal vein: Negative. Left Calf veins: Negative. Additional findings: None.. IMPRESSION: 1. No sonographic evidence for DVT in either lower extremity. Signer Name: Mark Phoenix MD Signed: 08/09/2020 10:51 PM Workstation Name: [id number]
== END 2020-08-10 00:15 | disposition home or self-care (01) ==
LOC: ED 19:19
DX: M79.672 Pain in left foot (principal); M79.671 Pain in right foot; M79.89 Other specified soft tissue disorders; J45.909 Unspecified asthma, uncomplicated; Z79.899 Other long term (current) drug therapy
CPT/HCPCS: 36415; 80053; 81001; 83880; 85025; 93970

== ENCOUNTER 2021-06-05 14:28 | Emergency (ER) | payer OTHER ==
[2021-06-05 14:33] VITALS: BP 145/93
--- NOTE | 2021-06-05 15:33 | Emergency Department Report ---
ED Chest Pain HPI - General Chief Complaint: Chest Pain Stated Complaint: CHEST PAIN Time Seen by Provider: 06/05/21 15:29 Source: patient Mode of arrival: Ambulatory Limitations: No Limitations - History of Present Illness Initial Comments: The patient was evaluated in the emergency department for symptoms described in the history of present illness. He/she was evaluated in the context of the global COVID-19 pandemic, which necessitated consideration that the patient might be at risk for infection with the virus that causes COVID-19. Institutional protocols and algorithms that pertain to the evaluation of patients at risk for COVID-19 are in a state of rapid change based on information released by regulatory bodies including the CDC and federal and state organizations. These policies and algorithms were followed during the patient's care in the emergency department. Please note that these policies, procedures and recommendations changed on a rapid basis. 35-year-old -[place] male presents to the emergency room reporting he has had right arm pain for 1 week.. Patient states it makes it worse when he eats turns his arm in a pronation and supination movement. Patient reports that today while at [employer] putting dog food in the car patient suddenly had chest pain he describes it as sharp and stabbing. Patient states that the chest pain lasted for less than 5 minutes. He states that the chest pain has resolved now. Patient states at that time he felt pressure that was building. Patient reports he has a history of GERD and has not been taking any medication for it. Patient denies any sweating fever chills shortness of breath. Patient reports no family history of any strokes cardiovascular disease or MIs. Patient states he has no allergies to medications. MD Complaint: chest pain Onset/Timin -: week(s) (Right arm pain), This morning (Chest pain) Onset: during exertion Pain Location: substernal Pain Radiation: none Severity scale (0 -10): 8 Quality: sharp, pressure Consistency: now resolved Improves With: nothing Worsens With: nothing re: denies: nausea, vomting, diaphoresis, dyspnea, sense of impending doom Other Symptoms: denies: cough, fever, syncope, rash, acid taste in mouth, leg swelling, palpitations, burping - Related Data Previous Rx's Medication Instructions Recorded Last Taken Type Calcium Carbonate [Tums 500MG CHEW] 500 mg PO Q8HR #90 tab 08/02/20 Unknown Rx Sodium Phosphate,Dibasic Dihyd 500 gm MC TID #30 powder 08/02/20 Unknown Rx [Sodium Phosphate] HYDROcodone/APAP 5-325 [[place] 1 each PO Q6HR PRN #10 tablet 08/09/20 Unknown Rx 5/325] Allergies Allergy/AdvReac Type Severity Reaction Status Date / Time No Known Allergies Allergy Verified 07/27/20 19:13 Heart Score - HEART Score History: Slightly suspicious EKG: Normal Age: < 45 Risk factors: No known risk factors Troponin: < normal limit (Patient left before blood work was drawn) HEART Score: 0 - EKG Read Time Time EKG Completed: 14:34 EKG Read Time: 14:34 ED Review of Systems ROS: Stated complaint: CHEST PAIN Other details as noted in HPI Comment: All other systems reviewed and negative ED Past Medical Hx - Past Medical History Hx Asthma: Yes Additional medical history: Bronchitis - Social History Smoking Status: Never Smoker Substance Use Type: Alcohol - Medications Home Medications: Home Medications Medication Instructions Recorded Confirmed Last Taken Type Calcium Carbonate [Tums 500MG CHEW] 500 mg PO Q8HR #90 tab 08/02/20 Unknown Rx Sodium Phosphate,Dibasic Dihyd 500 gm MC TID #30 powder 08/02/20 Unknown Rx [Sodium Phosphate] HYDROcodone/APAP 5-325 [[place] 1 each PO Q6HR PRN #10 tablet 08/09/20 Unknown Rx 5/325] ED Physical Exam - General Limitations: No Limitations General appearance: alert, in no apparent distress - Head Head exam: Present: atraumatic, normocephalic - Eye Eye exam: Present: normal appearance - ENT ENT exam: Present: mucous membranes moist - Neck Neck exam: Present: normal inspection - Respiratory Respiratory exam: Present: normal lung sounds bilaterally. Absent: respiratory distress - Cardiovascular Cardiovascular Exam: Present: regular rate, normal rhythm. Absent: systolic murmur, diastolic murmur, rubs, gallop - GI/Abdominal GI/Abdominal exam: Present: soft, normal bowel sounds - Rectal Rectal exam: Present: deferred - Extremities Exam Extremities exam: Present: normal inspection - Back Exam Back exam: Present: normal inspection - Neurological Exam Neurological exam: Present: alert, oriented X3 - Psychiatric Psychiatric exam: Present: normal affect, normal mood - Skin Skin exam: Present: warm, dry, intact, normal color. Absent: rash ED Course Vital Signs 06/05/21 14:31 Temperature 97.8 F Pulse Rate 99 H Respiratory 20 Rate Blood Pressure 145/93 [Left] O2 Sat by Pulse 99 Oximetry JOHN PAUL score - John Paul Score Age > 65: (0) No Aspirin use within the Past 7 Days: (0) No 3 or more CAD Risk Factors: (0) No 2 or more Angina events in past 24 hrs: (0) No Known CAD with more than 50% Stenosis: (0) No Elevated Cardiac Markers: (0) No ST Deviation Greater than 0.5mm: (0) No JOHN PAUL Score: 0 ED Medical Decision Making - Medical Decision Making 35-year-old -[place] male presents to the emergency room reporting he has had right arm pain for 1 week.. Patient states it makes it worse when he eats turns his arm in a pronation and supination movement. Patient reports that today while at [employer] putting dog food in the car patient suddenly had chest pain he describes it as sharp and stabbing. Patient states that the chest pain lasted for less than 5 minutes. He states that the chest pain has resolved now. Patient states at that time he felt pressure that was building. Patient reports he has a history of GERD and has not been taking any medication for it. Patient denies any sweating fever chills shortness of breath. Patient reports no family history of any strokes cardiovascular disease or MIs. Patient states he has no allergies to medications. Cardiac work-up was ordered. Lab informing that patient was nowhere to be found. EKG was done shows normal sinus rhythm. Critical care attestation.: If time is entered above; I have spent that time in minutes in the direct care of this critically ill patient, excluding procedure time. ED Disposition Clinical Impression: Atypical chest pain Disposition: 07 LEFT AWOL/ELOPED Is pt being admited?: No Does the pt Need Aspirin: No Condition: Undetermined Instructions: Nonspecific Chest Pain, Adult
--- NOTE | 2021-06-12 14:01 | Electrocardiograph Report ---
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
== END 2021-06-05 19:04 | disposition left against medical advice (07) ==
LOC: ED 14:28
DX: R07.89 Other chest pain (principal); F10.20 Alcohol dependence, uncomplicated
CPT/HCPCS: 93005; 99281